=== PATIENT | male | born 1950 ===

== ENCOUNTER 2019-07-08 16:48 | Inpatient (IN) | payer MEDICARE ==
[2019-07-08] VITALS (10 sets, daily range): BP systolic 120–150; BP diastolic 78–97; BMI 39.0
[~2019-07-08] VITALS: Ht 185.4 cm; Wt 119.2 kg
--- NOTE | 2019-07-08 17:39 | NUR ---
PROPOFOL STARTED @1739 WILL TITRATE FOR PT COMFORT
[2019-07-08 17:45] LABS: BASOPHILS 0.2 % (0-2); EOSINOPHILS 0 % (0-7); HEMATOCRIT 26.1 % (42.0-54.0); HEMOGLOBIN 8.2 g/dL (13.5-17.5); IMMATURE GRANULOCYTES 0.2 % (0-5); LYMPHOCYTES 9.6 % (15-50); MCH 29.3 pg (26.0-34.0); MCHC 31.4 g/dL (31.0-37.0); MCV 93.2 fL (80.0-100.0); MEAN PLATELET VOLUME 11.3 fL (7.4-10.4); MONOCYTES 2.4 % (2-11); NEUTROPHILS 87.6 % (40-80); PLATELET COUNT 83 10x3/uL (130-400); RDW 18.2 % (11.5-14.5); WBC 4.7 10x3/uL (4.8-10.8)
[2019-07-08 17:56] LABS: APTT 43.8 SECONDS (22.8-39.4); INR 1.09 (0.85-1.17); PROTIME 14.1 SECONDS (11.6-15.0)
[2019-07-08] MEDS ORDERED: NORVASC10 MG PO (17:57)
[2019-07-08] MEDS ORDERED: COREG25 MG PO (17:58)
[2019-07-08] MEDS ORDERED: BAYER CHEWABLE81 MG PO (17:58)
[2019-07-08] MEDS ORDERED: HYDRALAZINE HCL50 MG PO (17:59)
[2019-07-08] MEDS ORDERED: LASIX40 MG PO (17:59)
[2019-07-08] MEDS ORDERED: PEPCID AC20 MG PO (17:59)
[2019-07-08] MEDS ORDERED: ISOSORBIDE MONO60 M1 PO (18:00)
[2019-07-08] MEDS ORDERED: LIPITOR10 MG PO (18:00)
[2019-07-08] MEDS ORDERED: ZESTRIL20 MG PO (18:01)
[2019-07-08] MEDS ORDERED: LYRICA300 MG PO (18:01)
[2019-07-08] MEDS ORDERED: MAG-OXIDE400 MG PO (18:01)
[2019-07-08] MEDS ORDERED: PROTONIX40 MG PO (18:02)
[2019-07-08] MEDS ORDERED: PLAVIX75 MG (18:02)
[2019-07-08] MEDS ORDERED: GLUCOPHAGE1000 MG PO (18:02)
[2019-07-08] MEDS ORDERED: PRAVACHOL40 MG (18:03)
[2019-07-08] MEDS ORDERED: RANEXA1000 MG PO (18:03)
[2019-07-08 18:05] LABS: CALC OSMOLALITY 293 mosm/kg (275-300); CALCIUM 7.5 mg/dL (8.5-10.1); CARBON DIOXIDE 29.6 mmol/L (21.0-32.0); CHLORIDE - SERUM 107 mmol/L (98-107); CREATININE - SERUM 1.4 mg/dL (0.6-1.3); GLUCOSE 76 mg/dL (74-106); SODIUM 143 mmol/L (136-145); UREA NITROGEN 41 mg/dL (7-18); eGFR NON AFRICAN AMERICAN 54 mL/min (90-120)
--- NOTE | 2019-07-08 18:11 | NUR ---
16 FR CRITICORE SANABRIA PLACED USING STERILE TECHNIQUE PT HAD 18 G EJ AND 20 G PIV IN LEFT HAND UPON ARRIVAL TO ED
--- NOTE | 2019-07-08 18:13 | NUR ---
PT INTUBATED WITH 7.5 ET TUBE 27 AT LIP OG TUBE IN PLACE LINKED TO INTERMITTANT SUCTION WITH PRODUCTION
[2019-07-08 18:22] LABS: APPEARANCE CLEAR (CLEAR); BILIRUBIN NEGATIVE (NEGATIVE); COLOR YELLOW (YELLOW); GLUCOSE NEGATIVE (NEGATIVE); KETONE NEGATIVE (NEGATIVE); NITRITE NEGATIVE (NEGATIVE); PROTEIN 1+ mg/dL (NEGATIVE); SPECIFIC GRAVITY 1.015 (1.005-1.020); UROBILINOGEN NORMAL (NORMAL)
[2019-07-08 18:25] LABS: ALBUMIN 1.7 g/dL (3.4-5.0); ALKALINE PHOSPHATASE 114 U/L (46-116); ALT (SGPT) 75 U/L (10-68); BILIRUBIN - TOTAL 0.24 mg/dL (0.2-1.3); CREATINE KINASE 83 UL (21-232); PROTEIN - SERUM 5.6 g/dL (6.4-8.2)
[2019-07-08 18:26] LABS: PLATELET ESTIMATE DECREASED
[2019-07-08 18:27] LABS: TROPONIN-I 0.118 ng/mL (0.000-0.060)
--- NOTE | 2019-07-08 18:40 | NUR ---
REC'D TO CV 01 VIA STRETCHER FROM ER. PT ON VENT VIA OETT, RT BAGGING - MANAGING VENTILATOR. ICU MONITORS ESTAB. L PIV CAME OUT DURING TRANSFER, DSG APPLIED - NEW 20GA SITED TO R AC AND DIPRIVAN GTT RESUMED AT 5 MCG/KG/MIN. L EJ PIV, DSG C/D/I WITH LR AT KVO. SEE FULL ADMISSION ASSESSMENT. ALARMS ON.
--- NOTE | 2019-07-08 18:58 | NUR ---
ALFREDO MACK BY CHARGE NURSE PRIOR TO PT LEAVING ED
--- NOTE | 2019-07-08 19:15 | NUR ---
PRHARMACY CONTACTED TO VERIFY NO ANTIBIOTICS HAVE BEEN GIVEN. DOSAGE TIMES ADJUSTED PER PHARMACY.
--- NOTE | 2019-07-08 20:20 | NUR ---
DR. GLORIA ROGERS RE: CONSULT
--- NOTE | 2019-07-08 20:28 | NUR ---
SPOKE WITH SON, OSOR[facility] PHONE[facility] UPDATE GIVEN.
--- NOTE | 2019-07-08 21:31 | NUR ---
DR. GLORIA ROGERS.
--- NOTE | 2019-07-08 21:51 | NUR ---
PT WAKING MORE EASILY AND COUGHING AGAINST VENT. MOVING ARMS - Camille SCOTT APN NOTIFIED, NEW ORDERS REC'D AND SOFT WRIST RESTRAINTS INITIATED.
--- NOTE | 2019-07-08 22:18 | NUR ---
ADMISSION HX COMPLETED PER MD RECORDS
[2019-07-08] MEDS ORDERED: BUMEX2 MG PO (22:24)
[2019-07-08] MEDS ORDERED: COLACE100 MG PO (22:25)
[2019-07-08] MEDS ORDERED: CHRONULAC30 ML PO (22:27)
[2019-07-08] MEDS ORDERED: FLOMAX0.4 MG PO (22:28)
[2019-07-08] MEDS ORDERED: MUCINEX600 MG PO (22:33)
[2019-07-08] MEDS ORDERED: HYDROCODON-ACE1 EA10 PO (22:33)
[2019-07-08] MEDS ORDERED: IPRAT-ALBUT 0.5-3 ML UPD (22:35)
[2019-07-08] MEDS ORDERED: BASAGLAR K100 UNIT/1 SC (22:38)
[2019-07-08] MEDS ORDERED: LORAZEPAM1 MG/0.5 M SL (22:41)
[2019-07-08] MEDS ORDERED: METOLAZONE2.5 MG PO (22:44)
[2019-07-08] MEDS ORDERED: PENTOXIFYLLINE ER (22:46)
[2019-07-08] MEDS ORDERED: KLOR-CON M2020 MEQ PO (22:48)
[2019-07-08] MEDS ORDERED: TRICOR145 MG PO (22:50)
[2019-07-08] MEDS ORDERED: REGLAN5 MG PO (22:53)
[2019-07-08] MEDS ORDERED: PULMICORT0.5 MG/21 INH (22:54)
--- NOTE | 2019-07-08 23:03 | NUR ---
PT MED REC COMPLETED PER KS AUG.
--- NOTE | 2019-07-08 23:09 | NUR ---
DR. CASTRO RETURNED PAGE. NEW ORDER FOR FENTANYL GTT AT 25MCG/HR, AND HE WILL SEE PT IN AM.
--- NOTE | 2019-07-08 23:15 | NUR ---
REASSESSMENT PER FLOWSHEET.
--- NOTE | 2019-07-08 23:49 | NUR ---
CM - A FLUTTER, VARIABLE RATE, SBP 109 - DR. HAAS NOTIFIED AND NEW ORDER REC'D FOR CARDIZEM GTT.
[2019-07-09] VITALS (27 sets, daily range): BP systolic 112–142; BP diastolic 51–85; BMI 38.7
[2019-07-09 00:04] LABS: CREATINE KINASE 67 UL (21-232); MAGNESIUM - SERUM 1.9 mg/dL (1.8-2.4)
[2019-07-09 00:12] LABS: TROPONIN-I 0.223 ng/mL (0.000-0.060)
--- NOTE | 2019-07-09 01:00 | NUR ---
PT REPOSITIONED UP IN BED TO L SIDE. HEELS BRIDGED. PT WAKING UP - WILL FOLLOW SIMPLE COMMANDS. C/O BEING "HOT". FAN PROVIDED AND EXTRA BLANKETS REMOVED. TITRATING DIPRIVAN PER ORDERS.
--- NOTE | 2019-07-09 01:15 | NUR ---
PT RESTING WITH EYES CLOSED AT THIS TIME. NO SIGN OF DISTRESS.
--- NOTE | 2019-07-09 03:17 | NUR ---
REASSESSMENT PER FLOWSHEET. NO ACUTE CHANGES. FSBS - 53, HYPOGLYCEMIC PROTOCOL FOLLOWED.
--- NOTE | 2019-07-09 05:15 | NUR ---
PT AGITATED, THRASHED HEAD AND PULLING AGAINST RESTRAINTS. TITRATING DIPRIVAN PER ORDERS. ATTEMPT TO CALM FREQUENTLY BY REORIENTING AND COMFORT MEASURES.
--- NOTE | 2019-07-09 06:18 | NUR ---
PT MORE CALM AT THIS TIME. CM - AFLUTTER, VARIABLE CONDUCTION, HR 89.
[2019-07-09 06:23] LABS: BASOPHILS 0 % (0-2); EOSINOPHILS 0.9 % (0-7); HEMOGLOBIN 8.3 g/dL (13.5-17.5); IMMATURE GRANULOCYTES 0.2 % (0-5); MCH 29.2 pg (26.0-34.0); MCHC 31.9 g/dL (31.0-37.0); MCV 91.5 fL (80.0-100.0); MEAN PLATELET VOLUME 11.6 fL (7.4-10.4); MONOCYTES 2.6 % (2-11); NEUTROPHILS 79.3 % (40-80); PLATELET COUNT 99 10x3/uL (130-400); RBC 2.84 10x6/uL (4.20-6.10); RDW 18.4 % (11.5-14.5); WBC 5.4 10x3/uL (4.8-10.8)
[2019-07-09 06:56] LABS: % SATURATION 24 % (15-55); IRON 36 ug/dl (35-150); TOTAL IRON BIND CAPACITY 150 ug/dl (260-445); UNSAT IRON BIND CAPACITY 114 ug/dl (150-375)
--- NOTE | 2019-07-09 07:00 | NUR ---
REPORT RECEVEID FROM THE OFF GOING RN. SEE ASSESSMENT IN THE PTS FLOW SHEET. PT SEDATED AND ON THE VENT. RESPONDS TO VERBAL SIMULI. 7.0 ETT 25 AT THE LIP. LEFT EJ IV NOTED AND RIGHT AC IV NOTED. BOTH PATENT WITH C/D/I DRESSING AND SHOW NO S/SX OF INFILTRATION. GENERLIZED BRUISING AND SCABS NOTED THROUGHT THE PTS BODY. FC NOTED CLEAR, YELLOW URINE. LEFT ANKLE RED WITH A HEELING VENOUS STASIS ULCER NOTED. DRESSING TO COCCYX NOTED. PT REPOSITIONED WITH WEDGE PILLOWS. 2:1 FLUTTER NOTED VSS. CALL LIGHT IN REACH. WILL CONT POC.
[2019-07-09 07:33] LABS: ALBUMIN 1.5 g/dL (3.4-5.0); ALKALINE PHOSPHATASE 93 U/L (46-116); ALT (SGPT) 65 U/L (10-68); BILIRUBIN - TOTAL 0.34 mg/dL (0.2-1.3); CALCIUM 7.6 mg/dL (8.5-10.1); CARBON DIOXIDE 29.8 mmol/L (21.0-32.0); CHLORIDE - SERUM 107 mmol/L (98-107); CKMB 3.6 U/L (0.0-3.6); CREATINE KINASE 56 UL (21-232); CREATININE - SERUM 1.4 mg/dL (0.6-1.3); MAGNESIUM - SERUM 1.8 mg/dL (1.8-2.4); PHOSPHOROUS 3.6 mg/dL (2.5-4.9); POTASSIUM - SERUM 4.7 mmol/L (3.5-5.1); PROTEIN - SERUM 5.8 g/dL (6.4-8.2); SODIUM 142 mmol/L (136-145); UREA NITROGEN 38 mg/dL (7-18); eGFR NON AFRICAN AMERICAN 54 mL/min (90-120)
[2019-07-09 07:35] LABS: CALC OSMOLALITY 289 mosm/kg (275-300); FERRITIN 2990 ng/mL (3-244); GLUCOSE 69 mg/dL (74-106)
[2019-07-09 08:00] LABS: PRO BNP 39971 pg/mL (0-125)
--- NOTE | 2019-07-09 09:42 | NUR ---
DR HAAS AT THE PTS BEDSIDE. REPEAT ABG.
--- NOTE | 2019-07-09 09:45 | NUR ---
DR ROSADO PAGED REGARDING CONSULT.
--- NOTE | 2019-07-09 10:13 | NUR ---
SPOKE WITH DR ROSADO. HE IS AWARE OF CONSULT AND PTS CONDITION. NO NEW ORDERS AT THIS TIME.
--- NOTE | 2019-07-09 11:00 | NUR ---
REASSESSMENT COMPLETED. VSS. CALL LIGHT IN REACH. FC CARE COMPLTED. WILL CONT POC.
--- NOTE | 2019-07-09 13:00 | NUR ---
PT SENT DOWN FOR CT OF HEAD AND CHEST. OVERLAY MATTRESSED PLACED ON BED WHILE PT WAS IN THE CT MACHINE. PT TRANSFERED BACK TO ICU. PT TOLERATED WELL. WILL CONT POC.
--- NOTE | 2019-07-09 13:26 | NUR ---
Stage 2 pressure injury noted on coccyx measuring 1.5cm x 1cm. Stage 2 pressure injury on left buttock measuring 1cm x 1cm. There is a healing wound on top of left foot measuring 2cm x 2cm. All wounds were present on admission last night. Wound care recommendations: -Mepilex dressing on bottom -turn/reposition q 2 hours -air overlay mattress -keep left foot elevated Wound care will continue monitoring.
--- NOTE | 2019-07-09 14:54 | NUR ---
DR CASTRO NOTIFIED ABOUT HEAD AND CHEST CT RESULTS. NO NEW ORDERS AT THIS TIME.
--- NOTE | 2019-07-09 20:00 | NUR ---
PT SEDATED ON VENTILATOR. VSS. AFEBRILE. L EJ PIV, R AC PIV-BOTH PATENT. REPOSITIONED.
[2019-07-10] VITALS (28 sets, daily range): BP systolic 111–158; BP diastolic 47–76
--- NOTE | 2019-07-10 05:50 | NUR ---
PT BATHED AND LINEN CHANGED. TOLERATED WELL.
--- NOTE | 2019-07-10 07:00 | NUR ---
REPORT RECEVIED FROM THE OFF GOING RN. SEE ASSESSMENT IN THE PTS FLOW SHEET. PT SEDATED ON THE VENT. PT RESPONDS TO VERBAL STIMULI. AFLUTTER 3:1 RATE 66 NOTED. VSS AT THIS TIME. FC NOTED WITH CLEAR, YELLOW URINE. CALL LIGHT IN REACH. WILL CONT POC.
[2019-07-10 07:15] LABS: BASOPHILS 0.2 % (0-2); EOSINOPHILS 0.8 % (0-7); HEMATOCRIT 26.7 % (42.0-54.0); HEMOGLOBIN 8.5 g/dL (13.5-17.5); IMMATURE GRANULOCYTES 0.2 % (0-5); LYMPHOCYTES 24.9 % (15-50); MCHC 31.8 g/dL (31.0-37.0); MCV 91.1 fL (80.0-100.0); MEAN PLATELET VOLUME 10.5 fL (7.4-10.4); MONOCYTES 4.3 % (2-11); NEUTROPHILS 69.6 % (40-80); RBC 2.93 10x6/uL (4.20-6.10); RDW 18.7 % (11.5-14.5); WBC 4.9 10x3/uL (4.8-10.8)
[2019-07-10 07:16] LABS: PLATELET COUNT 121 10x3/uL (130-400)
[2019-07-10 07:41] LABS: ALBUMIN 1.5 g/dL (3.4-5.0); ANION GAP 9.8 mmol/L (8-16); BILIRUBIN - TOTAL 0.29 mg/dL (0.2-1.3); CALCIUM 7.6 mg/dL (8.5-10.1); CARBON DIOXIDE 30.3 mmol/L (21.0-32.0); CREATININE - SERUM 1.4 mg/dL (0.6-1.3); MAGNESIUM - SERUM 1.7 mg/dL (1.8-2.4); PHOSPHOROUS 3.5 mg/dL (2.5-4.9); POTASSIUM - SERUM 4.1 mmol/L (3.5-5.1); PROTEIN - SERUM 5.8 g/dL (6.4-8.2); VANCOMYCIN - TROUGH 17.8 ug/mL (10.0-20.0)
--- NOTE | 2019-07-10 09:00 | NUR ---
VSS. CALL LIGHT IN REACH. WILL CONT POC.
--- NOTE | 2019-07-10 11:00 | NUR ---
REASSESSMENT COMPLETED. SEE FLOW SHEET.
--- NOTE | 2019-07-10 13:28 | NUR ---
SPOKE WITH THE DIATICIAN ABOUT TB. SHE WILL MAKE TF RECOMENDATION,.
--- NOTE | 2019-07-10 13:37 | NUR ---
Nutrition Consult/Follow-up: Consult received for TF. Pt remains intubated. Noted I/O -3039.8 (07/09). Diet: NPO Wt: 247# (07/10); 293.5# (07/09) No BMs recorded Labs noted: GFR 54, K+ 4.1, Ca 7.6, PO4 3.5, Mg 1.7, Alb 1.5 Meds noted: Lasix, Diprivan, D5 1/2NS @ 30 -Start Pulmocare @ 15 mL/hr and increase by 10 mL q hr to goal rate of 55 mL/hr (provides 1980 kcal, 83 g protein, 1036 mL H2O) + H2O flushes 50 mL q 4 hrs. -RD following. Thanks for the consult!
--- NOTE | 2019-07-10 15:00 | NUR ---
REASSESSMENT COMPLETED. SEE FLOW SHEET.
--- NOTE | 2019-07-10 16:26 | NUR ---
DAYA SCHULTZ PLACED MIDLINE TO LEFT UPPER ARM. ALL TUBING LINES CHANGED. DOBUTAMINE INITIATED.
--- NOTE | 2019-07-10 17:33 | NUR ---
PULMOCARE INITIATED AT 15ML/H PER ORDERS.
--- NOTE | 2019-07-10 17:57 | NUR ---
HEART RATE INCREASED TO 128 2:1 FLUTTER. DOBUTAMINE DECREAED TO 1MCG AND HEART RATE STILL OVER 100. LUBNA SALVADOR NOTIFIED. HOLD DOBUTAMINE. HEART RATE DECREASED TO BASELINE. WILL CONT POC.
--- NOTE | 2019-07-10 18:30 | MORECARE ---
CASE MANAGEMENT DISCHARGE SUMMARY PATIENT: CORNELL ROBERTSON UNIT: [id number] ADM DATE: 07/08/19 AGE: 69 : 52 SEX: M [facility] AUTHOR: YESENIA ZAPATA PHYSICIAN: REFERRING PHYSICIAN: AUDRA HAAS MD DATE OF SERVICE: 07/10/19 Discharge Plan Patient Name: CORNELL ROBERTSON Facility: [facility]:[place] : 1950 Planned Disposition: Anticipated Discharge Date: Discharge Date: Expected LOS: Initial Reviewer: [email or web address] Initial Review Date: 07/08/2019 Generated: 07/10/19 7:30 pm DCPIA - Discharge Planning Initial Assessment Updated by [email or web address]: Ramona Salcedo on 07/10/19 6:28 pm * PCP KIMANI ROBERTSON * [facility] * Preadmission Environment [facility] * Facility Name [facility] * ADLs Partial Dependent * Partial ADLs (Assistance needed) Ambulation Bathing Dressing Eating Medication Management Toileting Transfers * List name and contact numbers for known caregivers / representatives who currently or will assist patient after discharge: OSORIO SAUCEDA [facility] - [phone] * Verbal permission to speak to the caregivers and representatives has been obtained from the patient. N/A * Community resources currently utilized None * Additional services required to return to the preadmission environment? No * Can the patient safely return to the preadmission environment? Yes * Has this patient been hospitalized within the prior 30 days at any hospital? No Patient Name: CORNELL ROBERTSON Page [phone] at 1830 All edits/amendments must be made on the electronic document DICTATION DATE: 07/10/191829 PROTECTIVE SERVICE SPECIALIST: ELIA 07/10/191829 RPT#: [id number] DC DATE: STATUS: ADM IN [facility] [address] [place] [address] END OF REPORT
--- NOTE | 2019-07-10 22:15 | NUR ---
PT IS A-FLUTTER PER CM. HE HAS STARTED HAVING 5-[address] GARCIA CALLED AND NOTIFIED. CARDIZEN ON HOLD PER ORDER. NO OTHER ORDERS AT THIS TIME. PT ATTACHED TO EXTERNAL PACEMAKER DUE TO HR BEING BRADYACARDIC INTERMITTENTLY.
[2019-07-11] VITALS (35 sets, daily range): BP systolic 123–173; BP diastolic 52–106
[2019-07-11 04:53] LABS: BASOPHILS 0.3 % (0-2); EOSINOPHILS 1.6 % (0-7); HEMATOCRIT 24.1 % (42.0-54.0); HEMOGLOBIN 7.8 g/dL (13.5-17.5); IMMATURE GRANULOCYTES 0.6 % (0-5); LYMPHOCYTES 31.3 % (15-50); MCH 29.5 pg (26.0-34.0); MCHC 32.4 g/dL (31.0-37.0); MCV 91.3 fL (80.0-100.0); MEAN PLATELET VOLUME 10.7 fL (7.4-10.4); MONOCYTES 4.1 % (2-11); NEUTROPHILS 62.1 % (40-80); PLATELET COUNT 125 10x3/uL (130-400); RBC 2.64 10x6/uL (4.20-6.10); RDW 18.6 % (11.5-14.5)
[2019-07-11 04:55] LABS: WBC 3.2 10x3/uL (4.8-10.8)
[2019-07-11 05:09] LABS: ALBUMIN 1.8 g/dL (3.4-5.0); ANION GAP 13.8 mmol/L (8-16); BILIRUBIN - TOTAL 0.31 mg/dL (0.2-1.3); CALCIUM 7.5 mg/dL (8.5-10.1); CARBON DIOXIDE 28.8 mmol/L (21.0-32.0); CREATININE - SERUM 1.4 mg/dL (0.6-1.3); MAGNESIUM - SERUM 1.7 mg/dL (1.8-2.4); PHOSPHOROUS 3.4 mg/dL (2.5-4.9); POTASSIUM - SERUM 3.6 mmol/L (3.5-5.1); PROTEIN - SERUM 5.6 g/dL (6.4-8.2)
--- NOTE | 2019-07-11 07:00 | NUR ---
RECEIVED BEDSIDE REPORT ON PATIENT AND ASSUMED CARE. PATIENT SEDATED ON VENT, OPENS EYES TO VOICE, NOT FOLLOWING COMMANDS. IV 18 GA TO LEFT EJ, FLUSHES EASILY, POSTIVE BLOOD RETURN, NSL; IV 20 GA TO RIGHT FA, FLUSHES EASILY, NO BLOOD RETURN, NSL. MIDLINE TO LEFT UPPER ARM INFUSING W/O DIFFICULTY. D5 1/2 NS INFUSING AT 3O ML/HR, FENTANYL AT 100 MCG/HR AND PROPOFOL AT 15 MCG/KG/MIN. CM - A-FLUTTER 3:1; RATE 78, SPO2 100% ON VENTILATOR. VENT SETTINGS ARE TV 550; A/C - 15; PEEP - 5 AND FIO2 - 50%. BILATERAL WRIST RESTRAINTS IN PLACE. SCDS IN PLACE. BBS - COARSE, DIMINISHED IN THE BASES. HEAD TO TOE ASSESSMENT COMPLETED.
--- NOTE | 2019-07-11 08:05 | NUR ---
1/2 BAGS 1 GM MAGNESIUM SULFATE STARTED INFUSING. MAG LEVEL THIS AM WAS 1.7. TO REPEAT LAB DRAW IN AM.
--- NOTE | 2019-07-11 08:49 | NUR ---
OGT PLACEMENT CHECKED VIA ASCULTATION, RESIDUAL 0 ML, TUBE FEEDING INCREASED FROM 15 ML/HR TO 25 ML/HR. PATIENT TURNED AND REPOSITIONED IN BED. VSS.
--- NOTE | 2019-07-11 09:58 | NUR ---
DR. HAAS AT ROOM UPATED AND EXAMINED PATIENT.
--- NOTE | 2019-07-11 10:17 | NUR ---
MEDS GIVEN PER MAR. VSS.
--- NOTE | 2019-07-11 10:37 | NUR ---
SPOKE TO DR. HAAS REGARDING PATIENTS H AND H, ADVISED TO GIVE 1 UNIT PRBCS.
--- NOTE | 2019-07-11 10:54 | NUR ---
REPORT GIVEN TO JOVANNY MARTÍNEZ AND TRANSPORTED TO ROOM 2313.
--- NOTE | 2019-07-11 10:56 | NUR ---
SPOKE TO PATIENTS ORLANDO CALVO AND ADVISED OF MOVE TO ICU ROOM 2313.
--- NOTE | 2019-07-11 11:25 | NUR ---
REASSESSMENT COMPLETE PER FLOW SHEET. VSS. NO NEW CHANGES WILL CONTINUEBronson RICHARDSON
--- NOTE | 2019-07-11 15:30 | NUR ---
REASSESSMENT COMPLETE PER FLOW SHEET. VSS. NO NEW CHANGES PT RESTING COMFORTABLY WILL CONTINUE TO MONITOR
--- NOTE | 2019-07-11 19:32 | NUR ---
SHIFT ASSESSMENT COMPLETED, PT INTUBATED, LIGHTLY SEDATED TRACKS WITH EYES, UNABLE TO SQUEEZE HANDS OR MOVE FEET ON COMMAND BUT IS AWAKE AND ORIENTED. VS WNL - NG TUBE OUT, PLANS ON EXTUBATION TOMORROW SO WILL LEAVE NG OUT AT THIS TIME. BILAT SOFT WRIST RESTRAINTS TO PROTECT MEDICAL TUBING AND LINES. SEE FLOWSHEET FOR COMPLETE ASSESSMENT.
--- NOTE | 2019-07-11 20:33 | NUR ---
HS MEDICATIONS GIVEN - PT INTUBATED AND SEDATED AT THIS TIME RESTING COMFORTABLY ON THE VENTILATOR
--- NOTE | 2019-07-11 21:36 | MORECARE ---
CASE MANAGEMENT DISCHARGE SUMMARY PATIENT: CORNELL ROBERTSON UNIT: [id number] ADM DATE: 07/08/19 AGE: 69 : 54 SEX: M ROOM/BED: D.2313 AUTHOR: YESENIA ZAPATA PHYSICIAN: REFERRING PHYSICIAN: AUDRA HAAS MD DATE OF SERVICE: 07/11/19 Discharge Plan Patient Name: CORNELL ROBERTSON Facility: [facility]:[place] : 1950 Planned Disposition: Anticipated Discharge Date: Discharge Date: Expected LOS: Initial Reviewer: [email or web address] Initial Review Date: 07/08/2019 Generated: 07/11/19 10:36 pm Comments DCP- Discharge Planning Updated by [email or web address]: Ramona Salcedo on 07/11/19 8:[address] CM attempted to call [facility] and [facility] [phone] each time facility would answer but they could not hear CM. CM tried on two different phones to assure it wasn't phone on this end. CM will continue to try to contact facility to find out bed status. DCPIA - Discharge Planning Initial Assessment Updated by [email or web address]: Ramona Salcedo on 07/10/19 6:28 pm * PCP KIMANI ROBERTSON * Pharmacy [facility] * Preadmission Environment [facility] Facility * Facility Name [facility] * ADLs Partial Dependent * Partial ADLs (Assistance needed) Ambulation Bathing Dressing Eating Medication Management Toileting Transfers * List name and contact numbers for known caregivers / representatives who currently or will assist patient after discharge: OSORIO SAUCEDA [facility] - [phone] * Verbal permission to speak to the caregivers and representatives has been obtained from the patient. N/A * Community resources currently utilized None * Additional services required to return to the preadmission environment? No * Can the patient safely return to the preadmission environment? Yes * Has this patient been hospitalized within the prior 30 days at any hospital? No Last DP export: 07/10/19 5:30 p Patient Name: CORNELL ROBERTSON Page [phone] at 2136 All edits/amendments must be made on the electronic document DICTATION DATE: 07/11/192135 BANKING PIN ADJUSTER: ELIA 07/11/192135 RPT#: [id number] DC DATE: STATUS: ADM IN [facility] [address] [place] [address] END OF REPORT
--- NOTE | 2019-07-11 23:45 | NUR ---
REASSESSMENT COMPLETED SEE FLOWSHEET
--- NOTE | 2019-07-11 23:45 | NUR ---
UNABLE TO OBTAIN SUICIDE SCREENING AT THIS TIME
[2019-07-12] VITALS (24 sets, daily range): BP systolic 130–178; BP diastolic 68–89
--- NOTE | 2019-07-12 00:57 | NUR ---
PT INTUBATED AND SEDATED - ORAL CARE COMPLETED, UNCONTROLLED AFIB ON THE MONITOR WCTM
[2019-07-12 04:59] LABS: BASOPHILS 0.4 % (0-2); EOSINOPHILS 0.1 % (0-7); IMMATURE GRANULOCYTES 0.4 % (0-5); LYMPHOCYTES 27.1 % (15-50); MCHC 32.4 g/dL (31.0-37.0); MCV 92.4 fL (80.0-100.0); MEAN PLATELET VOLUME 10.3 fL (7.4-10.4); MONOCYTES 6.5 % (2-11); NEUTROPHILS 65.5 % (40-80)
[2019-07-12 05:01] LABS: HEMATOCRIT 29.3 % (42.0-54.0); HEMOGLOBIN 9.5 g/dL (13.5-17.5); PLATELET COUNT 153 10x3/uL (130-400); RBC 3.17 10x6/uL (4.20-6.10); WBC 6.8 10x3/uL (4.8-10.8)
[2019-07-12 05:13] LABS: ALBUMIN 2.1 g/dL (3.4-5.0); ANION GAP 18.9 mmol/L (8-16); BILIRUBIN - TOTAL 0.57 mg/dL (0.2-1.3); CALCIUM 7.6 mg/dL (8.5-10.1); CARBON DIOXIDE 24.5 mmol/L (21.0-32.0); CREATININE - SERUM 1.7 mg/dL (0.6-1.3); MAGNESIUM - SERUM 1.8 mg/dL (1.8-2.4); PHOSPHOROUS 3.7 mg/dL (2.5-4.9); POTASSIUM - SERUM 3.4 mmol/L (3.5-5.1); PROTEIN - SERUM 6.1 g/dL (6.4-8.2)
--- NOTE | 2019-07-12 07:00 | NUR ---
BEDSIDE REPORT RECIEVED. SHIFT ASSESSMENT COMPLETED PER FLOWSHEET, SEE FLOWSHEET FOR INFORMATION. VSS. WILL CONT TO MONITOR.
--- NOTE | 2019-07-12 09:00 | NUR ---
ORAL AND INLINE SUCTIONED. NO ACUTE NEEDS OR DISTRESS NOTED AT THIS TIME. WILL CONT TO MONITOR.
--- NOTE | 2019-07-12 11:00 | NUR ---
REASSESSMENT COMPLETED PER FLOWSHEET, SEE FLOWSHEET FOR INFORMATION. NO ACUTE NEEDS OR DISTRESS NOTED AT THIS TIME. WILL CONT TO MONITOR.
--- NOTE | 2019-07-12 12:00 | NUR ---
AT BEDSIDE, BRONCHOSCOPY PROCEDURE STARTED. WILL CONT TO MONITOR.
--- NOTE | 2019-07-12 13:00 | NUR ---
TURNED PT PER COMFORT. NO ACUTE NEEDS OR DISTRESS WILL CONT TO MONITOR.
--- NOTE | 2019-07-12 14:16 | NUR ---
Nutrition follow-up: Pt intubated, sedated s/p bronch OGT will be placed today and Pulmocare started @ 25 ml/hr with no increase per Dr. Barber. RDN following.
--- NOTE | 2019-07-12 15:00 | NUR ---
REASSESSMENT COMPLETED PER FLOWSHEET, SEE FLOWSHEET FOR INFORMATION. PAGEKirit, NEW ORDERS RECEIVED. WILL CONT TO MONITOR.
[2019-07-12 16:20] LABS: POTASSIUM - SERUM 3.1 mmol/L (3.5-5.1)
--- NOTE | 2019-07-12 19:00 | NUR ---
PT IS RESTING IN BED AWAKE INTUBATED. ET INTACT AND SECURE TO VENT. HOB IS AT 30 DEGREES, ISOLATION PROTOCOL OBSERVED, VAP PROTOCOL OBSERVED. HE IS CALM. VITAL SIGNS ARE STABLE. BED IS LOW,SIDE RAILSX2, CALL LIGHT WITHIN REACH.
--- NOTE | 2019-07-12 21:45 | NUR ---
PT IS RESTING IN BED WITH EYES CLOSED. VITALS ARE STABLE, BED IS LOW, SIDE RAILSX2, CALL LIGHT WITHIN REACH. WILL CONTINUE TO MONITOR
--- NOTE | 2019-07-12 23:10 | NUR ---
PT IS RESTING IN BED WITH EYES CLOSED. VITALS ARE STABLE. ETT IS SECURE, ISOLATION PROTOCOL OBSERVED. BED IS LOW,SIDE RAILSX2,CALL LIGHT WITHIN REACH.WILL CONTINUE TO MONITOR
[2019-07-13] VITALS (30 sets, daily range): BP systolic 102–174; BP diastolic 49–113
--- NOTE | 2019-07-13 01:34 | NUR ---
WENT INTO ROOM TO ADMINISTER MEDS ORDERED. PT IS AWAKE AND TYRING TO BITE ETT. WHEN ASKED IF HE WANTS IT OUT HE SHOOK HIS HEAD UP AND DOWN YES. I VOICED THAT I AM SORRY BUT IT HAS TO STAY IN FOR NOW. I ASKED HIM IF HE IS IN ANY PAIN AND HE SHOOK HIS HEAD BACK AND FORTH FOR NO. STARTED HIS TUBE FEEDING ORDERED SINCE PLACEMENT HAS BEEN CONFIRMED BY XRAY. I ALSO RECHECKED PLACEMENT BY ASCULTATING AT THE STOMACH AND HEARD GURGLES WHEN FLUSHED WITH 20ML OF AIR. STARTED TUBE FEEDINGS AT 15ML/HR ORDERED TO START. VITAL SIGNS ARE STABLE. BED IS LOW,SIDE RAILSX2, CALL LIGHT WITHIN REACH. WILL CONTINUE TO MONITOR
[2019-07-13 02:37] LABS: HEMATOCRIT 27.6 % (42.0-54.0); HEMOGLOBIN 8.9 g/dL (13.5-17.5); MCH 29.6 pg (26.0-34.0); MCHC 32.2 g/dL (31.0-37.0); MCV 91.7 fL (80.0-100.0); MEAN PLATELET VOLUME 10.2 fL (7.4-10.4); PLATELET COUNT 159 10x3/uL (130-400); RBC 3.01 10x6/uL (4.20-6.10); RDW 18.3 % (11.5-14.5)
[2019-07-13 03:12] LABS: ALBUMIN 2.3 g/dL (3.4-5.0); BILIRUBIN - TOTAL 0.7 mg/dL (0.2-1.3); CALCIUM 7.7 mg/dL (8.5-10.1); CARBON DIOXIDE 26.9 mmol/L (21.0-32.0); CREATININE - SERUM 1.6 mg/dL (0.6-1.3); MAGNESIUM - SERUM 1.7 mg/dL (1.8-2.4); PHOSPHOROUS 3.2 mg/dL (2.5-4.9); PROTEIN - SERUM 6.1 g/dL (6.4-8.2)
[2019-07-13 03:47] LABS: LYMPHOCYTES 31 % (15-50); MONOCYTES 8 % (2-11); NEUTROPHILS 59 % (40-80); PLATELET ESTIMATE NORMAL
--- NOTE | 2019-07-13 03:51 | NUR ---
PT IS RESTING IN BED WITH EYES CLOSED. VITAL SIGNS ARE STABLE. BED IS LOW,SIDE RAILSX2,CALL LIGHT WITHIN REACH. WILL CONITNUE TO MONITOR
--- NOTE | 2019-07-13 05:00 | NUR ---
PERFOMRED HCG TOTAL BED BATH AT THIS TIME. PT TOLERATED WELL. RESTRAINTS WERE TAKEN OFF DURING BATH AND TIED BACK AFTER. CATHETOR CARE WAS PERFOMRED. PT HAD SMALL LIQUID BOWEL MOVEMENT BROWN IN COLOR AT THIS TIME. APPLIED NEW MEPAPLEX DRESSING TO COCCYX REAGION AND TO RIGHT ELBOW. I D/C RIGHT FORAMR IV AT THIS TIME DUE TO PROTOCOL, CATHETOR WAS INTACT WITH MINIMAL BLEEDING. REPOSITION ALL 4 EXTREMITIES ON PILLOW WITH HEALS HANGING OFF THE PILLOW OFF THE BED. PT TOLERATED ALL THIS WELL WITHOUT GRIMMISING. VITAL SIGNS ARE STABLE. BED IS LOW,SIDE RAILSX2,CALL LIGHT WITHIN REACH. WILL CONITNUE TO MONITOR
--- NOTE | 2019-07-13 07:00 | NUR ---
BEDSIDE REPORT RECEIVED. SHIFT ASSESSMENT COMPLETED PER FLOWSHEET, SEE FLOWSHEET FOR INFORMATION. PT AWAKE IN BED MOVING ARMS. WILL CONT TO MONITOR.
[2019-07-13 08:55] LABS: ANION GAP 16.4 mmol/L (8-16); POTASSIUM - SERUM 3.3 mmol/L (3.5-5.1)
--- NOTE | 2019-07-13 09:00 | NUR ---
TURNED PER COMFORT, NO ACUTE NEEDS OR DISTRESS NOTED AT THIS TIME. VSS. WILL CONT TO MONITOR.
--- NOTE | 2019-07-13 11:00 | NUR ---
REASSESSMENT COMPLETED PER FLOWSHEET, SEE FLOWSHEET FOR INFORMATION. PT THROWING UP THICK BROWN LIQUID, NOTIFIED. NEW ORDER RECEIVED. WILL CONT TO MONITOR.
--- NOTE | 2019-07-13 12:00 | NUR ---
PT DESAT TO 52, RT CALLED. PT BAGGED UNTIL O2 SAT WENT UP TO 92. PT BACK ON VENT AT 100 OXYGEN. VERSED MEDICAL LABORATORY TECHNICAL OFFICER INITIATED. AT BEDSIDE. VSS, WILL CONT TO MONITOR.
--- NOTE | 2019-07-13 13:00 | NUR ---
PT AGITATED. THRASHING HEAD TRYING TO SELF EXTUBATE. REORIENTED PT AND HE CALMED DOWN. WILL CONT TO MONITOR.
--- NOTE | 2019-07-13 15:00 | NUR ---
REASSESSMENT COMPLETED PER FLOWSHEET, SEE FLOWSHEET FOR INFORMATION. WILL CONT TO MONITOR.
[2019-07-13 16:08] LABS: ACID FAST SMEAR Negative (()); AFB SPECIMEN PROCESSING Concentration (())
--- NOTE | 2019-07-13 17:00 | NUR ---
PT RESTING IN BED WITH EYES CLOSED. NO ACUTE NEEDS OR DISTRESS NOTED AT THIS TIME. WILL CONT TO MONITOR.
--- NOTE | 2019-07-13 19:25 | NUR ---
PT IS LAYING IN BED INTUBATED/SEDATED ON RIGHT SIDE. ISOLATION SEDATION OBSREVED. RESTRAINTS OBSERVED AND SECURED. VITAL SIGNS ARE STABLE. SANABRIA CATHETOR IS INTACT DRAINING. LEFT AC MIDLINE INTACT PATENT. LEFT EJ SL LOCK PATENT. PT MOVES WHEN STIMULATED PER STERNAL RUB. WILL DO FULL ASSESSMENT AND CHART. BED IS LOW, SIDE RAILSX2,CALL LIGHT WITHIN REACH. WILL CONINTUE TO MONITOR.
--- NOTE | 2019-07-13 21:45 | NUR ---
WENT INTO TURN PT AND FOUND THAT HE HAD HAD A BM LIQUID LIGHT BROWN. OCCULAT GOTTEN AT THIS TIME ORDERED. BEFORE CLEANING PT UP, I PRE-OXYGENATED AND SUCTION VIA ETT TUBE. TURNED PT AND CLEANED HIM WHILE DOING A TOTAL BED CHANGE. PT WAS TURNED AND PROPED ONTO LEFT SIDE. RETRAINTS WERE TAKEN OFF AND REAPPLIED AFTER CLEANING AND POSITIONING. PT TOLERATED WELL. PT WAS SLIGHTLY ARROUSED BY OPENING HIS EYES WHILE TURNING. AFTER CLEANING I DID ORAL MOUTH CARE ORDERED AND APPLIED MOISTURE CREAM TO LIPS. BED WAS PUT BACK IN THE LOW POSITION. HOB AT 30 DEGREES, ALL LINES AND TUBES SECURE AND IN PLACE. SIDE RAILSX2,CALL LIGHT WITIN REACH. VITAL SIGNS STABLE. WILL CONTNIUE TO [facility]
--- NOTE | 2019-07-13 23:14 | NUR ---
PERFORMED REASSESMENT. PT IS INTUBATED/SEDATED. ISOLATION OBSERVED. LET RESTRAINTS OFF AND REAPLIED ONCE DONE. PT HAS EYES CLOSED BUT OPEN WHEN CALLED NAME OUT. FASTLY GOES BACK TO SLEEP. BED IS LOW,SIDE RAILSX2,CALL LIGHT WITHIN REACH.WILL CONITNUE TO MONITOR
[2019-07-14] VITALS (24 sets, daily range): BP systolic 116–181; BP diastolic 61–92; Ht 185.4 cm; Wt 119.2 kg
--- NOTE | 2019-07-14 00:47 | NUR ---
PT O2 SATURATION DECREASED IN THE 80%. INCREASED OXYGEN TO 100% FOR 2MINUTES AND O2 IMPROVED TO THE 90%. ONCE BACK TO 70% O2 DECREASED AGIN TO 78%. RT CALLED IN AND PUT PT ON 100% O2 AT THIS TIME. PT O2 IS 96% NOW, OTHER VITAL SIGNS ARE STABLE. PERFOMRED ORAL CARE AT THIS TIME, NOT SUCTION. LIFTED PT UP IN THE BED AND REPOSITIONED WELL TO BACK. HOB IS 30 DEGREES. BED IS LOW,SIDE RAILX2,CALL LIGHT WITHIN REACH.WILL CONTINUE TO MONITOR
--- NOTE | 2019-07-14 02:58 | NUR ---
PT IS SEDATED INTUBATED IN BED WITH EYES CLOSED. PERFORMING RE ASSESSMENT AT THIS TIME AND WILL DOCUMENT. I PERFOMRED ORAL CARE, REPOSITIONED TO THE RIGHT. BED IS LEFT LOW,SIDE RAILSX2,CALL LIGHT WIHTIN REACH. VITAL SIGNS ARE STABLE. WILL CONINTUE TO MONITOR
--- NOTE | 2019-07-14 04:12 | NUR ---
PERFORMED TOTOAL BED BATH C HCG AT THIS TIME. PT HAS SMALL LOOSE LIGHT BROWN BM. CHANGED ALL LIENES, PERFOMRED ORAL CARE, CHANGED MEPAPLEX ON COCCYX. CHANGED DRESSING ON BOTH LEFT AC MIDLINE WHILE KEEPING STERIL TECHNIQUE AND CHANGED LEFT EJ. PT WAS PROPPED ONTO HIS RIGHT SIDE WITH WEDGES. SALINE FLUSED LEFT EJ AT THIS TIME, NO S/S OF INFILTRATION. VITALS STABLE. RESTRAINTS WERE TAKEN OFF AND RE APPLIED ORDER. BED IS LOW,SIDE RAILSX2,CALL LIGHT WITHIN REACH. WILL CONTINUE TO MONITOR.
[2019-07-14 06:31] LABS: ALBUMIN 2.3 g/dL (3.4-5.0); BILIRUBIN - TOTAL 0.83 mg/dL (0.2-1.3); CALCIUM 7.4 mg/dL (8.5-10.1); CREATININE - SERUM 1.8 mg/dL (0.6-1.3); MAGNESIUM - SERUM 1.8 mg/dL (1.8-2.4); PHOSPHOROUS 3.4 mg/dL (2.5-4.9); PROTEIN - SERUM 6.1 g/dL (6.4-8.2)
--- NOTE | 2019-07-14 07:00 | NUR ---
BEDSIDE REPORT RECEIVED. SHIFT ASSESSMENT COMPLETED PER FLOWSHEET, SEE FLOWSHEET FOR INFORMATION. ORAL AND INLINE SUCTIONED AND ORAL CARE GIVEN. NO ACUTE NEEDS OR DISTRESS NOTED AT THIS TIME. WILL CONT TO MONITOR.
[2019-07-14 08:13] LABS: BASOPHILS 0.2 % (0-2); EOSINOPHILS 0.1 % (0-7); HEMATOCRIT 30.5 % (42.0-54.0); HEMOGLOBIN 9.5 g/dL (13.5-17.5); IMMATURE GRANULOCYTES 1.1 % (0-5); MCH 29.1 pg (26.0-34.0); MCHC 31.1 g/dL (31.0-37.0); MCV 93.6 fL (80.0-100.0); MONOCYTES 9.3 % (2-11); NEUTROPHILS 77.3 % (40-80); PLATELET COUNT 190 10x3/uL (130-400); RBC 3.26 10x6/uL (4.20-6.10); RDW 18.4 % (11.5-14.5); WBC 12.4 10x3/uL (4.8-10.8)
--- NOTE | 2019-07-14 09:00 | NUR ---
REPOSITIONED PER COMFORT. ORAL AND INLINE SUCTIONED. WILL CONT TO MONITOR.
--- NOTE | 2019-07-14 11:00 | NUR ---
REASSESSMENT COMPLETED PER FLOWSHEET, SEE FLOWSHEET FOR INFORAMTION. TURNED PT PER COMFORT. ORAL AND INLINE SUCTIONED. COMPLETE LINEN CHANGE COMPLETED. WILL CONT TO MONITOR.
--- NOTE | 2019-07-14 13:00 | NUR ---
AT BEDSIDE, CVL PLACED. WILL CONT TO MONITOR.
--- NOTE | 2019-07-14 15:00 | NUR ---
REASSESSMENT COMPLETED PER FLOWSHEET, SEE FLOWSHEET FOR INFORMATION. REPOSITIONED PER COMFORT. ORAL AND INLINE SUCTIONED. WILL CONT TO MONITOR.
--- NOTE | 2019-07-14 17:00 | NUR ---
ORAL AND INLINE SUCTIONED. WILL CONT TO MONITOR.
--- NOTE | 2019-07-14 19:00 | NUR ---
ASSESSMENT COMPLETED. REPOSITIONED AND ORAL CARE PROVIDED. CONT ON VENT. LEFT SUBCLAVIAN AND LEFT AC MIDLINE PATENT.
--- NOTE | 2019-07-14 21:00 | NUR ---
REPOSITIONED AND ORAL CARE PROVIDED. STARTED TF BACK PER MD ORDERS, CHECKED PLACEMENT FIRST. PULLED EJ WITH TIP INTACT.
--- NOTE | 2019-07-14 23:00 | NUR ---
REASSESSMENT COMPLETE REPOSITIONED FOR COMFORT WILL CONTINUE TO MONITOR
[2019-07-15] VITALS (26 sets, daily range): BP systolic 94–171; BP diastolic 56–98
--- NOTE | 2019-07-15 03:00 | NUR ---
REASSESSMENT COMPLETE ORAL CARE AND REPOSITIONED FOR COMFORT CPOC
--- NOTE | 2019-07-15 07:00 | NUR ---
PT REPORT RECEIVED FROM DRIVER GUIDE NURSE. NO ACUTE SIGNS OF DISTRESS NOTED. SHIFT ASSESSMENT COMPLETED. PT ON VENT. WILL CONTINUE TO MONITOR
--- NOTE | 2019-07-15 09:00 | NUR ---
PT RESTING IN BED. NO ACUTE SIGNS OF DISTRESS NOTED. WILL CONTINUE TO MONITOR
--- NOTE | 2019-07-15 09:19 | NUR ---
Nutrition follow-up: Pt intubated, sedated Pulmocare infusing @ 55 ml/hr Labs reviewed Wt: 269# RDN following.
--- NOTE | 2019-07-15 11:00 | NUR ---
PT RESTING IN BED COMFORTABLY. ORAL CARE PROVIDED. REASSESSMENT COMPLETED. WILL CONTINUE TO MONITOR
[2019-07-15 11:09] LABS: FUNGUS STAIN Final report (())
--- NOTE | 2019-07-15 12:00 | NUR ---
DR ANTUNEZ AT BEDSIDE. UPDATE GIVEN. STOPPED PRECEDEX. INCREASED FENTANYL FILENET P8 DEVELOPER AND VERSED FILENET P8 DEVELOPER TO MAINTAIN SEDATION
--- NOTE | 2019-07-15 13:00 | NUR ---
PT RESTING IN BED. NO ACUTE SIGNS OF DISTRESS NOTED. WILL CONTINUE TO MONITOR
--- NOTE | 2019-07-15 15:00 | NUR ---
PT RESTING IN BED. REASSESSMENT COMPLETED. NO ACUTE SIGNS OF DISTRESS NOTED. WILL CONTINUE TO MONITOR
--- NOTE | 2019-07-15 17:15 | NUR ---
CHG BATH GIVEN. PT TOLERATED WELL. WILL CONTINUE TO MONITOR
--- NOTE | 2019-07-15 19:00 | NUR ---
Report received from off going nurse. Pt is laying in bed intubated and sedated. Pt repositioned for comfort. Oral care performed. No s/s of distress noted. Will continue to monitor.
--- NOTE | 2019-07-15 21:00 | NUR ---
Pt is laying in bed intubated and sedated. Pt repositioned for comfort. Oral care performed. No further needs noted. No s/s of distress. Will continue to monitor.
--- NOTE | 2019-07-15 23:00 | NUR ---
Reassessment completed, see flowsheet for details. Pt is laying in bed intubated and sedated. Pt repositioned for comfort. Oral care performed. No further needs noted. No s/s of distress. Will continue to monitor.
[2019-07-16] VITALS (25 sets, daily range): BP systolic 83–136; BP diastolic 53–87
--- NOTE | 2019-07-16 01:00 | NUR ---
Pt is laying in bed intubated and sedated. Pt repositioned for comfort. Oral care performed. No s/s of distress noted. will continue to monitor.
[2019-07-16 04:50] LABS: BASOPHILS 0.1 % (0-2); EOSINOPHILS 0.7 % (0-7); HEMOGLOBIN 7.6 g/dL (13.5-17.5); IMMATURE GRANULOCYTES 1.4 % (0-5); LYMPHOCYTES 11.3 % (15-50); MCHC 31.9 g/dL (31.0-37.0); MCV 94.1 fL (80.0-100.0); MEAN PLATELET VOLUME 9.8 fL (7.4-10.4); MONOCYTES 8.1 % (2-11); NEUTROPHILS 78.4 % (40-80); PLATELET COUNT 217 10x3/uL (130-400); RDW 18.7 % (11.5-14.5); WBC 10.4 10x3/uL (4.8-10.8)
[2019-07-16 05:36] LABS: ALBUMIN 2.1 g/dL (3.4-5.0); ANION GAP 11.8 mmol/L (8-16); BILIRUBIN - TOTAL 0.69 mg/dL (0.2-1.3); CARBON DIOXIDE 29.5 mmol/L (21.0-32.0); CREATININE - SERUM 2.4 mg/dL (0.6-1.3); MAGNESIUM - SERUM 1.8 mg/dL (1.8-2.4); PHOSPHOROUS 3.3 mg/dL (2.5-4.9); POTASSIUM - SERUM 3.3 mmol/L (3.5-5.1); PROTEIN - SERUM 5.4 g/dL (6.4-8.2)
[2019-07-16 05:57] LABS: HEMATOCRIT 23.8 % (42.0-54.0); RBC 2.53 10x6/uL (4.20-6.10)
--- NOTE | 2019-07-16 07:00 | NUR ---
PT REPORT RECEIVED FROM ASSOCIATE PROFESSOR OF AUTOMATION NURSE. SHIFT ASSESSMENT COMPLETED. NO ACUTE SIGNS OF DISTRESS NOTED. BP IN THE 80'S SYSTOLIC. MAP IN THE LOW 60'S. TURNED THE DOBUTAMINE BACK ON AT 2.5
--- NOTE | 2019-07-16 09:30 | NUR ---
PT RESTING IN BED COMFORTABLY. NO ACUTE SIGNS OF DISTRESS NOTED. WILL CONTINUE TO MONITOR
--- NOTE | 2019-07-16 11:07 | NUR ---
PAGED DR ISRAEL TO NOTIFY HIM OF CONSULT ON THIS PT. AWAITING CALL BACK
--- NOTE | 2019-07-16 13:00 | NUR ---
DR ANTUNEZ AT BEDSIDE. UPDATE GIVEN. NO NEW ORDERS AT THIS TIME. WILL CONTINUE TO MONITOR
[2019-07-16 13:48] LABS: ERYTHROCYTE SEDIMENTATION RATE 47 mm/hr (0-20)
--- NOTE | 2019-07-16 15:00 | NUR ---
PT RESTING IN BED. NO ACUTE SIGNS OF DISTRESS NOTED. REASSESSMENT COMPLETED. WILL CONTINUE TO MONITOR
[2019-07-16 16:50] LABS: APPEARANCE HAZY (CLEAR); BILIRUBIN NEGATIVE (NEGATIVE); COLOR YELLOW (YELLOW); GLUCOSE NEGATIVE (NEGATIVE); KETONE NEGATIVE (NEGATIVE); NITRITE NEGATIVE (NEGATIVE); PROTEIN 1+ mg/dL (NEGATIVE); SPECIFIC GRAVITY 1.015 (1.005-1.020); UROBILINOGEN NORMAL (NORMAL)
[2019-07-16 16:51] LABS: BACTERIA MANY /hpf (NEGATIVE); WHITE CELLS - URINE >50 /hpf (NEGATIVE); YEAST >1+ WITH HYPHAE /hpf (NONE SEEN)
[2019-07-16 17:07] LABS: CREATININE - URINE 112.5 mg/dL (30-125)
[2019-07-16 17:08] LABS: PRO/CRE RATIO URINE 3.2 mg/g; PROTEIN - URINE 364.7 mg/dL (0.0-11.9)
--- NOTE | 2019-07-16 17:35 | NUR ---
PT HAD A RESIDUAL VOLUME OF 510. DISCUSSED WITH DR HEARD. ORDER RECEIVED TO HOLD TUBE FEEDINGS OVERNIGHT AND RESTART IN THE MORNING.
--- NOTE | 2019-07-16 18:38 | MORECARE ---
CASE MANAGEMENT DISCHARGE SUMMARY PATIENT: CORNELL ROBERTSON UNIT: [id number] ADM DATE: 07/08/19 AGE: 69 : 52 SEX: M ROOM/BED: D.2313 AUTHOR: JODI,DOC PHYSICIAN: REFERRING PHYSICIAN: AUDRA HAAS MD DATE OF SERVICE: 07/16/19 Discharge Plan Patient Name: CORNELL ROBERTSON Facility: [facility]:[place] : 1950 Planned Disposition: Anticipated Discharge Date: Discharge Date: Expected LOS: Initial Reviewer: [email or web address] Initial Review Date: 07/08/2019 Generated: 07/16/19 7:38 pm Comments DCP- Discharge Planning Updated by [email or web address]: Ramona Salcedo on 07/16/19 5:[address] Patient Name: CORNELL ROBERTSON Admission Status: ER Accout number: [id number] Admission Date: 07-08-2019 : 1950 Admission Diagnosis: Attending: AUDRA HAAS Current LOS: 2 Anticipated DC Date: Planned Disposition: Primary Insurance: MEDICARE A & B Discharge Planning Comments: CM called and spoke with patient's son Osorio Iqbal after explaining CM role and obtaining verbal consent. Patient is currently on vent. Patient coded while he was at [facility] and then went to [facility] then air lifted here. Osorio states that he has been in and out of hospitals, rehab facilities within the last year. Osorio plans on patient returning to [facility] upon discharge. CM will contact [place] to assure that he can come back to facility at discharge and find out what status (bed type) he was in. CM will continue to follow and assist as needed with discharge planning / needs. Pharmacy Operations Coordinator: Ramona Salcedo Appended by Ramona Salcedo on 07/10/2019 18:35 EQUIPMENT TECHNICIAN: Osorio patient's son wants to make sure patient remains a FULL CODE. DCP- Discharge Planning Updated by [id number]: Ramona Salcedo on 07/11/19 8:[address] CM attempted to call [facility] [phone] each time facility would answer but they could not hear CM. CM tried on two different phones to assure it wasn't phone on this end. CM will continue to try to contact facility to find out bed status. DCPIA - Discharge Planning Initial Assessment Updated by [id number]: Ramona Salcedo on 07/10/19 6:28 pm * PCP KIMANI ROBERTSON * [facility] * Preadmission Environment Long-Term Facility * Facility Name [facility] * ADLs Partial Dependent * Partial ADLs (Assistance needed) Ambulation Bathing Dressing Eating Medication Management Toileting Transfers * List name and contact numbers for known caregivers / representatives who currently or will assist patient after discharge: OSORIO PERRY - [phone] * Verbal permission to speak to the caregivers and representatives has been obtained from the patient. N/A * Community resources currently utilized None * Additional services required to return to the preadmission environment? No * Can the patient safely return to the preadmission environment? Yes * Has this patient been hospitalized within the prior 30 days at any hospital? No Last DP export: 07/11/19 8:36 p Patient Name: CORNELL ROBERTSON Page [id number] at 1838 All edits/amendments must be made on the electronic document DICTATION DATE: 07/16/191837 EVENT CREW TECHNICIAN: ELIA 07/16/191837 RPT#: [id number] DC DATE: STATUS: ADM IN [facility] [address] [place] [address] END OF REPORT
--- NOTE | 2019-07-16 19:00 | NUR ---
Report received from off going nurse. Pt is laying in bed intubated and sedated. Pt repositioned for comfort. Oral care performed. No further needs noted. No s/s of distress. Will continue to monitor.
--- NOTE | 2019-07-16 21:00 | NUR ---
Pt is resting in bed intubated and sedated. Pt repositioned for comfort. Oral care performed. No further needs noted. No s/s of distress. Will continue to monitor.
--- NOTE | 2019-07-16 23:00 | NUR ---
Reassessment completed, see flowsheet for details. Pt repositioned for comfort. Oral care performed. No further needs noted. No s/s of distress. Will continue to monitor.
[2019-07-17] VITALS (24 sets, daily range): BP systolic 91–139; BP diastolic 51–104
[2019-07-17 05:28] LABS: ALBUMIN 2.3 g/dL (3.4-5.0); ANION GAP 12.8 mmol/L (8-16); BILIRUBIN - TOTAL 0.91 mg/dL (0.2-1.3); CALCIUM 7.5 mg/dL (8.5-10.1); CARBON DIOXIDE 27.9 mmol/L (21.0-32.0); CREATININE - SERUM 2.9 mg/dL (0.6-1.3); MAGNESIUM - SERUM 1.7 mg/dL (1.8-2.4); POTASSIUM - SERUM 3.7 mmol/L (3.5-5.1); PROTEIN - SERUM 5.9 g/dL (6.4-8.2)
[2019-07-17 05:32] LABS: BASOPHILS 0.4 % (0-2); EOSINOPHILS 0.8 % (0-7); HEMATOCRIT 23.7 % (42.0-54.0); IMMATURE GRANULOCYTES 0.8 % (0-5); LYMPHOCYTES 21.1 % (15-50); MCH 29.6 pg (26.0-34.0); MCHC 31.6 g/dL (31.0-37.0); MCV 93.7 fL (80.0-100.0); MEAN PLATELET VOLUME 10.5 fL (7.4-10.4); MONOCYTES 12.1 % (2-11); NEUTROPHILS 64.8 % (40-80); PLATELET COUNT 246 10x3/uL (130-400); RBC 2.53 10x6/uL (4.20-6.10); RDW 18.7 % (11.5-14.5); WBC 10.1 10x3/uL (4.8-10.8)
[2019-07-17 05:37] LABS: HEMOGLOBIN 7.5 g/dL (13.5-17.5)
--- NOTE | 2019-07-17 07:00 | NUR ---
OPENS EYES TO STIMULATION, MOVING ARMS AND LEGS. BILATERAL LUNG SOUNDS EQUAL ETT SECURE TO VENT OG CLAMPED. SANABRIA PATENT WITH JORDAN URINE SMALL AMOUNT IN BAG. LEFT SUBCLAVIAN TRIPLE LUMEN INFUSING WITH DOBUTAMINE AT 0.5 MCG/KG/MIN. LEFT UPPER ARM MID LINE INFUSING WITH FENTANYL AT 200 MCG, VERSED AT 2 MG HOUR. D51/2NS AT 30 ML HOUR. HEELS BRIDGES ON PILLOW. HEAD OF BED ELEVATED 30 DEGREES. FIRST STEP MATTRESS ON BED.
--- NOTE | 2019-07-17 08:45 | NUR ---
Nutrition follow-up: TF on hold due to elevated residuals (510 ml) Labs reviewed; BUN/Cr elevated Due to pt not tolerating Pulmocare, RDN changing TF formula to Osmolite 1.0 gregory @ 25 ml/hr with gradual increase to goal rate of 50 ml/hr. RDN following.
--- NOTE | 2019-07-17 08:55 | NUR ---
RESIDUAL CHECKED ON CLAMPED NG 170 ML REMOVED. TALKED WITH DIETICAN ABOUT TUBE FEEDING.
--- NOTE | 2019-07-17 12:00 | NUR ---
TUBE FEEDING STARTED OSMOLITE AT 25 ML HOUR. NO FLUSHES. LESS 20CC RESIDUAL
--- NOTE | 2019-07-17 13:00 | NUR ---
UNIT OF BLOOD INFUSING NO REACTION NOTED. RESTING COMFORTABLY.
--- NOTE | 2019-07-17 15:30 | NUR ---
UNIT OF BLOOD COMPLETE PATIENT TOLERATED WELL NO REACTION NOTED.
--- NOTE | 2019-07-17 17:24 | MORECARE ---
CASE MANAGEMENT DISCHARGE SUMMARY PATIENT: CORNELL ROBERTSON UNIT: [id number] ADM DATE: 07/08/19 AGE: 69 : 52 SEX: M ROOM/BED: D.2313 AUTHOR: JODI,DOC PHYSICIAN: REFERRING PHYSICIAN: AUDRA HAAS MD DATE OF SERVICE: 07/17/19 Discharge Plan Patient Name: CORNELL ROBERTSON Facility: [facility]:[place] : 1950 Planned Disposition: Anticipated Discharge Date: Discharge Date: Expected LOS: Initial Reviewer: [email or web address] Initial Review Date: 07/08/2019 Generated: 07/17/19 6:24 pm Comments DCP- Discharge Planning Updated by [email or web address]: Ramona Salcedo on 07/17/19 4:[address] [facility]. [phone]. She stated that the patient was in a Medicare SNF bed prior to code being sent out. He will be placed in a Medicaid pending bed upon return d/t him not being able to tolerate therapy. CM will continue to follow and assist as needed with discharge planning needs. DCP- Discharge Planning Updated by [id number]: Ramona Salcedo on 07/16/19 5:[address] Patient Name: CORNELL ROBERTSON Admission Status: ER Accout number: [id number] Admission Date: 07-08-2019 : 1950 Admission Diagnosis: Attending: AUDRA HAAS Current LOS: 2 Anticipated DC Date: Planned Disposition: Primary Insurance: MEDICARE A & B Discharge Planning Comments: CM called and spoke with patient's son Osorio Iqbal after explaining CM role and obtaining verbal consent. Patient is currently on vent. Patient coded while he was at [facility] and then went to [facility] then air lifted here. Osorio states that he has been in and out of hospitals, rehab facilities within the last year. Osorio plans on patient returning to [facility] upon discharge. CM will contact [facility] to assure that he can come back to facility at discharge and find out what status (bed type) he was in. CM will continue to follow and assist as needed with discharge planning / needs. And Drying Supervisor Cooking Casing: Ramona Salcedo Appended by Ramona Salcedo on 07/10/2019 18:35 FULL STACK DEVELOPER: Osorio patient's son wants to make sure patient remains a FULL CODE. DCP- Discharge Planning Updated by [id number]: Ramona Salcedo on 07/11/19 8:[address] CM attempted to call [facility] [phone] each time facility would answer but they could not hear CM. CM tried on two different phones to assure it wasn't phone on this end. CM will continue to try to contact facility to find out bed status. DCPIA - Discharge Planning Initial Assessment Updated by [email or web address]: Ramona Salcedo on 07/10/19 6:28 pm * PCP KIMANI ROBERTSON * [facility] * Preadmission Environment Residential Facility * Facility Name [facility] * ADLs Partial Dependent * Partial ADLs (Assistance needed) Ambulation Bathing Dressing Eating Medication Management Toileting Transfers * List name and contact numbers for known caregivers / representatives who currently or will assist patient after discharge: OSORIO IQBAL - SON - [phone] * Verbal permission to speak to the caregivers and representatives has been obtained from the patient. N/A * Community resources currently utilized None * Additional services required to return to the preadmission environment? No * Can the patient safely return to the preadmission environment? Yes * Has this patient been hospitalized within the prior 30 days at any hospital? No Last DP export: 07/16/19 5:38 p Patient Name: CORNELL ROBERTSON Page [phone] at 1724 All edits/amendments must be made on the electronic document DICTATION DATE: 07/17/191723 HISTORICAL GUIDE: ELIA 07/17/191723 RPT#: [id number] DC DATE: STATUS: ADM IN [facility] [address] [place] [address] END OF REPORT
--- NOTE | 2019-07-17 17:30 | NUR ---
RESIDUAL FROM TUBE FEEDING 25 ML. NO CHANGE IN TUBE FEEDING RATE. REPOSITIONED ON RIGHT SIDE. SUCTIONED ORAL CARE DONE. MEDIPLEX STILL ON BUTTOCK. DRY AND INTACT. NO SKIN BREAKDOWN NOTED. SUCTION MOD AMOUTN WHITE SPUTUM FROM ETT AND ORALLY. UMBILLICAL HERNIA NOTED. HEELS BRIDGED ON PILLOW. HEAD OF BED ELEVATED AT 30 DEGREES. DOBUTAMINE AT 1 MCG/KG/MIN. HEART IN LOW 120'S. DOBUTAMINE NOT INCREASED DUE TO HEART RATE. FENTANYL AT 200 MCG/MIN. VERSED 2 MG. D51/2NS AT 30 ML HOUR. OPENS EYES TO STIMULATION LIFTS ARMS UP AND DOWN. BILATERAL LUNG SOUNDS EQUAL.
--- NOTE | 2019-07-17 19:00 | NUR ---
SHIFT ASSESSMENT COMPLETED. PT CARE ASSUMED. MONITORS ON AND WORKING, VITALS STABLE, VENT SETTINGS NOTED. SEE FLOW SHEET FOR FURTHER DETAILS, WILL CONTINUE TO OBSERVE.
[2019-07-18] VITALS (60 sets, daily range): BP systolic 97–135; BP diastolic 61–94
[2019-07-18 04:43] LABS: BASOPHILS 0.4 % (0-2); EOSINOPHILS 0.4 % (0-7); HEMOGLOBIN 8.5 g/dL (13.5-17.5); LYMPHOCYTES 19.1 % (15-50); MCH 30.2 pg (26.0-34.0); MCHC 32.7 g/dL (31.0-37.0); MCV 92.5 fL (80.0-100.0); MEAN PLATELET VOLUME 10.1 fL (7.4-10.4); MONOCYTES 10.9 % (2-11); NEUTROPHILS 67.2 % (40-80); RBC 2.81 10x6/uL (4.20-6.10); RDW 18.3 % (11.5-14.5)
[2019-07-18 04:45] LABS: PLATELET COUNT 310 10x3/uL (130-400); WBC 12.8 10x3/uL (4.8-10.8)
[2019-07-18 05:03] LABS: ALBUMIN 2.3 g/dL (3.4-5.0); ANION GAP 12.7 mmol/L (8-16); BILIRUBIN - TOTAL 1.11 mg/dL (0.2-1.3); CALCIUM 7.3 mg/dL (8.5-10.1); CARBON DIOXIDE 27.2 mmol/L (21.0-32.0); CREATININE - SERUM 3.2 mg/dL (0.6-1.3); MAGNESIUM - SERUM 1.9 mg/dL (1.8-2.4); PHOSPHOROUS 3.5 mg/dL (2.5-4.9); POTASSIUM - SERUM 3.9 mmol/L (3.5-5.1); PROTEIN - SERUM 5.5 g/dL (6.4-8.2)
[2019-07-18 06:09] LABS: SPE - ALBUMIN 2.4 g/dL (2.9-4.4); SPE - ALPHA-1 GLOBULIN 0.3 g/dL (0.0-0.4); SPE - ALPHA-2 GLOBULIN 0.6 g/dL (0.4-1.0); SPE - BETA GLOBULIN 0.6 g/dL (0.7-1.3); SPE - GAMMA GLOBULIN 0.9 g/dL (0.4-1.8); SPE - M-SPIKE Not Observed g/dL (Not Observed); SPE - TOTAL PROTEIN 4.8 g/dL (6.0-8.5)
--- NOTE | 2019-07-18 07:15 | NUR ---
REPORT RECEIVED. 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 PT ON VENT. SETTINGS PER RT. 7.5 ETT. 24CM AT LIP. VSS. PT HAS LEFT SUBCLAVIAN WITH FENTANYL AND VERSED INFUSING. ALSO HAS DOBUTAMINE. PT HAS SANABRIA. PT HAS TUBE FEEDING. WILL CONTINUE TO MONITOR.
--- NOTE | 2019-07-18 09:30 | NUR ---
PT SUCTIONED AND REPOSITIONED. VSS. WILL CONTINUE TO MONITOR.
--- NOTE | 2019-07-18 11:30 | NUR ---
RESIDUAL LESS THAN 100ML. OSMOLITE AT 25ML/HR. VSS. WILL CONTINUE TO MONITOR.
--- NOTE | 2019-07-18 13:02 | NUR ---
PROTEIN GIVEN WITH TUBE FEED. PT REPOSITIONED. WILL CONTINUE TO MONITOR.
--- NOTE | 2019-07-18 14:19 | NUR ---
PT INCONTINENT OF BOWEL. PT CLEANED UP. MEPILEX TO COCCYX CHANGED. PRESSURE ULCER CLEANED. PT REPOSITIONED AND SUCTIONED.
--- NOTE | 2019-07-18 16:45 | NUR ---
PT REPOSITIONED. PT SUCTIONED. VSS. WILL CONTINUE TO MONITOR.
--- NOTE | 2019-07-18 17:23 | NUR ---
VSS. SUCTIONED. ZOSYN INFUSING. WILL CONTINUE TO MONITOR.
--- NOTE | 2019-07-18 19:00 | NUR ---
SHIFT ASSESSMENT COMPLETED. PT CARE ASSUMED. MONITORS ON AND WORKING, VITALS STABLE. SEE FLOW SHEET FOR FURTHER DETAILS. WILL CONTINUE TO OBSERVE.
--- NOTE | 2019-07-18 21:00 | NUR ---
PT TURNED AND REPOSITIONED FOR COMFORT, MONITORS ON AND WORKING, WILL CONTINUE TO OBSERVE.
--- NOTE | 2019-07-18 23:00 | NUR ---
800 ML RESIDUAL. TUBE FEEDS TURNED OFF AT THIS TIME, WILL REASSES.
--- NOTE | 2019-07-18 23:00 | NUR ---
PT TURNED AND REPOSITIONED FOR COMFORT. MONITORS ON AND WORKING, VITALS STABLE, SEE FLOW SHEET FOR FURTHER DETAILS. WILL CONTINUE TO OBSERVE.
[2019-07-19] VITALS (24 sets, daily range): BP systolic 103–162; BP diastolic 63–119
--- NOTE | 2019-07-19 05:00 | NUR ---
PT TURNED AND REPOSITIONED FOR COMFORT, MONITORS ON AND WORKING, NO OTHER CHANGES AT THIS TIME, WILL CONTINUE TO OBSERVE.
[2019-07-19 05:38] LABS: BASOPHILS 0.4 % (0-2); EOSINOPHILS 0.3 % (0-7); HEMATOCRIT 26.8 % (42.0-54.0); HEMOGLOBIN 8.7 g/dL (13.5-17.5); LYMPHOCYTES 24.3 % (15-50); MCH 30.4 pg (26.0-34.0); MCHC 32.5 g/dL (31.0-37.0); MCV 93.7 fL (80.0-100.0); MEAN PLATELET VOLUME 10.2 fL (7.4-10.4); MONOCYTES 10.6 % (2-11); NEUTROPHILS 60.4 % (40-80); RBC 2.86 10x6/uL (4.20-6.10); RDW 18.4 % (11.5-14.5); WBC 12.3 10x3/uL (4.8-10.8)
[2019-07-19 05:53] LABS: PLATELET COUNT 428 10x3/uL (130-400)
--- NOTE | 2019-07-19 07:00 | NUR ---
PT REPORT RECEIVED FROM INTERLOCKING INSTALLER NURSE. NO ACUTE SIGNS OF DISTRESS NOTED. SHIFT ASSESSMENT COMPLETED. WILL CONTINUE TO MONITOR
--- NOTE | 2019-07-19 07:38 | NUR ---
INCREASED PT FIO2 TO 40%
[2019-07-19 07:57] LABS: ALBUMIN 2.3 g/dL (3.4-5.0); ANION GAP 14.2 mmol/L (8-16); BILIRUBIN - TOTAL 0.94 mg/dL (0.2-1.3); CALCIUM 7.8 mg/dL (8.5-10.1); CARBON DIOXIDE 27.7 mmol/L (21.0-32.0); CREATININE - SERUM 3.8 mg/dL (0.6-1.3); MAGNESIUM - SERUM 2.2 mg/dL (1.8-2.4); POTASSIUM - SERUM 3.9 mmol/L (3.5-5.1); PROTEIN - SERUM 6.4 g/dL (6.4-8.2)
--- NOTE | 2019-07-19 09:00 | NUR ---
PT RESTING IN BED. ORAL CARE PROVIDED. NO ACUTE SIGNS OF DISTRESS NOTED. WILL CONTINUE TO MONITOR
--- NOTE | 2019-07-19 09:10 | NUR ---
CALLED PHARMACY REGARDING DIFLUCAN FOR PT. TALKED TO GORAN. HE STATED THAT THEY HAD TO MAKE THE MIXTURE THEN HE WOULD HAVE A TECH BRING IT UP.
--- NOTE | 2019-07-19 09:51 | NUR ---
STILL WAITING ON THE DIFLUCAN PREMIX FROM PHARMACY. NOT IN [facility] OR IN [place].
--- NOTE | 2019-07-19 11:00 | NUR ---
PT RESTING IN BED. REASSESSMENT COMPLETED. WILL CONTINUE TO MONITOR
--- NOTE | 2019-07-19 12:32 | NUR ---
NUTRITION F/U NURSING REPORTS PT WITH HI RESIDUALS LAST PM. OSMOLITE 1.0 BRIANNE CURRENTLY OFF. PT ON REGLAN. NURSING TO RESTART TUBE FEEDS HOPEFULLY TODAY. RD FOLLOWING
[2019-07-19 13:10] LABS: FUNGUS CULTURE RESULT 1 Candida glabrata (()); FUNGUS MYCOLOGY CULTURE Preliminary report (())
--- NOTE | 2019-07-19 13:15 | NUR ---
DR ANTUNEZ AT BEDSIDE. UPDATE GIVEN. NO NEW ORDERS AT THIS TIME. WILL CONTINUE TO MONITOR
--- NOTE | 2019-07-19 15:15 | NUR ---
REASSESSMENT COMPLETED. PT RESTING IN BED. NO ACUTE SIGNS OF DISTRESS NOTED. WILL CONTINUE TO MONITOR
[2019-07-19 17:04] LABS: UPE RAND - ALBUMIN 65.3; UPE RAND - ALPHA 1 GLOBULIN 2.9; UPE RAND - BETA GLOBULIN 12.4
[2019-07-19 17:05] LABS: UPE RAND - GAMMA GLOBULIN 12.4
--- NOTE | 2019-07-19 17:10 | NUR ---
PT RESTING IN BED. ORAL CARE AND ADL PERFORMED AT THIS TIME. NO VISIBLE SIGNS OF DISTRESS NOTED. WILL CONTINUE TO MONITOR
--- NOTE | 2019-07-19 19:00 | NUR ---
pt is laying in bed on back at this time. isolation observed, restrained observed. checked restraint areas and all look well with good capilary refill in fingers. Iv sites look patent c no s/s of infiltration. voss is secure and draining. tube feeding observed going at 10ml per hour. i will check residule soon. will perform shift assessment and document. vital signs are stable. bed is low,side railsx2,call light within reach. will conitnue to monitor
--- NOTE | 2019-07-19 20:14 | NUR ---
checked residule of tube feeding. is 260ml at this time at only 10ml per hr. had recieved in report that pt has been having high residules however had had a low residuel during the day of only 15ml. so that he was started back on his tube feeding at order at a slow rate of 10ml. i stopped the feeding at this time due to high residule. pt abd is also distended, hard, bowel sounds are heard in all 4 quadrents however are all hypoactive. hooked up og-tube to intermitten suction as advised by Sylvie MARTÍNEZauditor in charge nurse and to notify . will notify and continue to monitor. vital signs are stable at this time. bed is low,side railsx2,call light within reach. restraints are observed and in good position. will conitnue to monitor
--- NOTE | 2019-07-19 20:55 | NUR ---
TShelly FROM TO HOLD TUBE FEEDINGS UNTILL MORINGIN AND TO GET A KUB IN THE MORINING. T.O READ BACK CORRECT.
--- NOTE | 2019-07-19 22:16 | NUR ---
MONITORING PT AND HE IS OPEINIGN EYES AND PUTTING HIS LEFT ARM UP AND DOWN. HIS HR IS 127 A.FLUTTER AND BP IS 150/87 MAP 113. PUPILS ARE A 4 BILAT AND QUICK TO CHANGE. WENT UP ON FENTANYL 250MCG ORDERED TO TITRATE. PERFOMRED ORAL CARE AT THIS TIME. WILL CONTINUE TO MONITOR. BED IS LOW,SIDE RAILSX2,CALL LIGHT WITHIN REACH.
[2019-07-20] VITALS (25 sets, daily range): BP systolic 137–173; BP diastolic 68–102
--- NOTE | 2019-07-20 00:05 | NUR ---
PT IS RESTING IN BED WITH EYES CLOSED. HE STILL SLIGHTLY OPENS EYES WHEN CALLED HIS NAME BUT SEEMS TO BE MORE COMFORTABLE SINCE INCREASING FENTYLE ORDERED TO TITRATE. VITAL SIGNS ARE STABLE. RESTRAINTS WERE TAKEN OFF AND REAPPLIED AT THIS TIME TO CHECK CIRCULATION. ORAL CARE WAS DONE. HOB IS 30 DEGREES. BED IS LOW,SIDE RAILSX2, CALL LIGHT WIHTIN REACH.WILL CONINTUE TO MONITOR
--- NOTE | 2019-07-20 01:18 | NUR ---
PT IS RESTING WITH EYES CLOSED SEDATED AND INTUBATED. VITAL SIGNS ARE STABLE. HAD JUST DONE SEDATION ASSESSMENT AND RESTRAINT ASSESSMENT ALREADY DOCUMENTED. PT IS ON RIGHT SIDE, BOTH LEGS ARE PROPPED WITH A PILLOW AND HEALS ARE OFF THE BED. BED IS LOW,SIDE RAILSX2,CALL LIGHT WITHIN REACH. WILL CONITNUE TO MONITOR
--- NOTE | 2019-07-20 03:00 | NUR ---
I HAD PROPPED PT UP ON HIS LEFT SIDE HOWEVER HE DID NOT TOLERATE WELL SINCE HIS OXYGEN SATURATION WENT DOWN TO BE IN THE HIGH 70S AND 80S. WHEN RESPOSITIONED BACK TO HIS BACK PT O2 SAT WENT UP TO 99%. I HAVE HIM SLIGHLY TILTED TO THE LEFT, LEGS ARE PROPED ON PILLOWS WITH HEALS OFF THE BED. PERFOMED ORAL CARE. VITAL SIGNS ARE NOW STABLE. PERFOMRED SEDATION ASSESSMENT AT THIS TIME AND REMOVED RESTRAINTS AND REPLACED AFTER CHECKING CAP REFILL WHICH IS WNL. VITAL SIGNS ARE STBALE NOW, BED IS LOW,SIDE RAILSX2,CALL LIGHT WIHTIN REACH.
--- NOTE | 2019-07-20 05:00 | NUR ---
PT IS RESTING IN BED WITH EYES CLOSED, SEDATED AND INTUBATED. INTUBATION IS SECURE. PT IS TURNED TO BACK WITH HEELS ELEVATED OFF THE BED BY PILLOWS. OG-TUBE IS STILL ON INTERMITTEN SUCTION AND IS PULLING OUT WHITISH BROWN TUBE FEEDING. THERE IS AN ORDER TO TRY AND RE-START TUBE FEEDING IN THE MORNING. VITAL SIGNS ARE STABLE. RESTRAINTS WERE TAKEN OFF AND PUT BACK ON WHILE CHECKING CAP REFILL WHICH IS LESS THAN 3 SECONDS. ALL LINES ARE SECURE. ISOLATION WAS OBSERVED. BED IS LOW,SIDE RAILSX2,CALL LIGHT IS WITHIN REACH. WILL CONTINUE TO MONITOR
[2019-07-20 05:05] LABS: BASOPHILS 0.4 % (0-2); EOSINOPHILS 0.5 % (0-7); HEMATOCRIT 25.3 % (42.0-54.0); HEMOGLOBIN 8.1 g/dL (13.5-17.5); IMMATURE GRANULOCYTES 4.4 % (0-5); LYMPHOCYTES 22.9 % (15-50); MCH 29.9 pg (26.0-34.0); MCV 93.4 fL (80.0-100.0); MEAN PLATELET VOLUME 9.5 fL (7.4-10.4); NEUTROPHILS 61.8 % (40-80); PLATELET COUNT 377 10x3/uL (130-400); RBC 2.71 10x6/uL (4.20-6.10); RDW 18.3 % (11.5-14.5); WBC 10.2 10x3/uL (4.8-10.8)
[2019-07-20 05:27] LABS: ALBUMIN 2.4 g/dL (3.4-5.0); ANION GAP 14.4 mmol/L (8-16); CALCIUM 7.8 mg/dL (8.5-10.1); CREATININE - SERUM 3.9 mg/dL (0.6-1.3); MAGNESIUM - SERUM 2.1 mg/dL (1.8-2.4); POTASSIUM - SERUM 3.4 mmol/L (3.5-5.1); PROTEIN - SERUM 6.2 g/dL (6.4-8.2)
--- NOTE | 2019-07-20 07:00 | NUR ---
BEDSIDE REPORT RECEIVED. SHIFT ASSESSMENT COMPLETED PER FLOWSHEET, SEE FLOWSHEET FOR INFORMATION. NO ACUTE NEEDS OR DISTRESS NOTED AT THIS TIME. WILL CONT TO MONITOR.
--- NOTE | 2019-07-20 09:00 | NUR ---
ORAL AND INLINE SUCTIONED, ORAL CARE GIVEN. WILL CONT TO MONITOR.
--- NOTE | 2019-07-20 11:00 | NUR ---
REASSESSMENT COMPLETED PER FLOWSHEET, SEE FLOWSHEET FOR INFORMATION.
--- NOTE | 2019-07-20 11:57 | NUR ---
SON OSORIO CALLED AND UPDATE GIVEN. PT INFORMED NURSE THAT "IF THERE'S NOT A GOOD OUTCOME, WE DON'T NEED TO CONTINUE DOING THAT TO HIM" DR ANTUNEZ NOTIFIED. WILL CONT TO MONITOR.
--- NOTE | 2019-07-20 13:00 | NUR ---
TURNED PT PER COMFORT. WILL CONT TO MONITOR.
--- NOTE | 2019-07-20 15:00 | NUR ---
REASSESSMENT COMPLETED PER FLOWSHEET, SEE FLOWSHEET FOR INFORMATION. WILL CONT TO MONITOR.
--- NOTE | 2019-07-20 17:00 | NUR ---
TURNED PT PER COMFORT. PT RESTING IN BED WITH EYES CLOSED. WILL CONT TO MONITOR.
--- NOTE | 2019-07-20 19:00 | NUR ---
RECIVED BEDSIDE SHIFT REPORT. OBSERVED ISOLATION AND RESTRAINTS. RESTRAINTS WERE TAKEN OFF TO ASSESS CAP REFILL AND EXTREMITES THEN REPLACED BACK ON. CAP REFILL IS LESS THAN 3 SEC. PT IS INTUBATED/SEDATED AND WILL OPEN EYES SLIGHTLY TO PAIN RESPONSE. HE IS TURNED ONTO HIS RIGHT SIDE AT THIS TIME WITH HEELS ELEVATED OFF THE BED. 1ST STEP OVER LAY IS OBSERVED. SANABRIA IS INTACT AND DRAINING. ALL IV TUBING IS SECURE AND IN DATE. TUBE FEEDING IS STILL ON HOLD AT THIS TIME. VITAL SIGNS ARE STABLE. BED IS LOW,SIDE RAILSX2,CALL LIGHT WIHTIN REACH.WILL CONTINUE TO MONITOR
--- NOTE | 2019-07-20 21:00 | NUR ---
PT IS RESTING IN BED WITH EYES CLOSED. VITALS ARE STABLE. ORAL CARE PERFOMED. BED IS LOW,SIDE RAILSX2,CCALL LIGHT WITHIN REACH. WILL CONITNUE TO MONITOR
--- NOTE | 2019-07-20 23:26 | NUR ---
ASSESSED PT AND TURNED TO HIS BACK AT THIS TIME. ORAL CARE PERFOMED. VITAL SIGNS ARE STABLE. BED IS LOW,ISDE RAILSX2,CALL LIGHT WITHIN REACH. WILL CONITNUE TO MONITOR
[2019-07-21] VITALS (24 sets, daily range): BP systolic 126–152; BP diastolic 70–96
--- NOTE | 2019-07-21 01:44 | NUR ---
PT IS RESTING IN BED WITH EYES CLOSED. VITAL SIGNS ARE STABLE. BED IS LOW,SIDE RAILSX2,CALL LIGHT WITHIN REACH.WILL CONITNUE TO MONITOR
--- NOTE | 2019-07-21 05:00 | NUR ---
PERFORMED TOTOAL BED BATH WITH CHG AT THIS TIME. PT TOLERATED WELL. I UNHOOKED RESTRAINTS AND TOOK THEM OFF WHILE DOING BATH. PT WAS PROOPED TO LEFT SIDE. RESTRAINTS WERE PUT BACK ON ORDERED. VITAL SIGNS ARE STABLE. FEET ARE ELEVATED OFF BED WITH PILLOW UNDER KNEES AND LEGS. BED IS LOW,SIDE RAILSX2,CALL LIGHT WITHIN REACH. WILL CONITNUE TO MONITOR
[2019-07-21 06:17] LABS: BASOPHILS 0.6 % (0-2); EOSINOPHILS 0.8 % (0-7); HEMATOCRIT 25.5 % (42.0-54.0); HEMOGLOBIN 8.2 g/dL (13.5-17.5); IMMATURE GRANULOCYTES 4.3 % (0-5); LYMPHOCYTES 19.1 % (15-50); MCH 30.3 pg (26.0-34.0); MCHC 32.2 g/dL (31.0-37.0); MCV 94.1 fL (80.0-100.0); MEAN PLATELET VOLUME 9.1 fL (7.4-10.4); MONOCYTES 10.2 % (2-11); PLATELET COUNT 402 10x3/uL (130-400); RBC 2.71 10x6/uL (4.20-6.10); RDW 18.8 % (11.5-14.5)
[2019-07-21 06:38] LABS: ALBUMIN 2.5 g/dL (3.4-5.0); ANION GAP 17.1 mmol/L (8-16); BILIRUBIN - TOTAL 0.88 mg/dL (0.2-1.3); CALCIUM 8.3 mg/dL (8.5-10.1); CARBON DIOXIDE 23.6 mmol/L (21.0-32.0); CREATININE - SERUM 3.8 mg/dL (0.6-1.3); POTASSIUM - SERUM 3.7 mmol/L (3.5-5.1); PROTEIN - SERUM 6.4 g/dL (6.4-8.2); VANCOMYCIN - RANDOM 12.9 ug/mL (10.0-20.0)
--- NOTE | 2019-07-21 07:00 | NUR ---
BEDSIDE REPORT RECEIVED. SHIFT ASSESSMENT COMPLETED PER FLOWSHEET, SEE FLOWSHEET FOR INFORMATION. PT RESTING IN BED WITH EYES CLOSED. NO ACUTE NEEDS OR DISTRESS NOTED AT THIS TIME. WILL CONT TO MONITOR.
--- NOTE | 2019-07-21 09:00 | NUR ---
0900 MEDICATIONS GIVEN. PT RESTING IN BED WITH EYES CLOSED. WILL CONT TO MONITOR.
--- NOTE | 2019-07-21 11:00 | NUR ---
REASSESSMENT COMPLETED PER FLOWSHEET, SEE FLOWSHEET FOR INFORMATION. ORAL CARE GIVEN, ORAL AND INLINE SUCTIONED. NO ACUTE NEEDS OR DISTRESS NOTED AT THIS TIME. WILL CONT TO MONITOR.
--- NOTE | 2019-07-21 13:00 | NUR ---
ORAL CARE GIVEN, REPOSITIONED PER COMFORT. NO ACUTE NEEDS OR DISTRESS NOTED AT THIS TIME. AT BEDSIDE. WILL CONT TO MONITOR.
--- NOTE | 2019-07-21 15:00 | NUR ---
REASSESSMENT COMPLETED PER FLOWSHEET, SEE FLOWSHEET FOR INFORMATION. NO ACUTE NEEDS OR DISTRESS NOTED AT THIS TIME. WILL CONT TO MONITOR.
--- NOTE | 2019-07-21 17:00 | NUR ---
CHECKED OGT RESIDUAL, 250ML+ OF RESIDUAL. ATTACHED OGT TO LOW INTERMITENT SUCTION. NOTIFIED , NO NEW ORDERS. WILL CONT TO MONITOR.
--- NOTE | 2019-07-21 18:02 | NUR ---
NOTIFIED. NEW ORDERS RECEIVED.
--- NOTE | 2019-07-21 19:00 | NUR ---
Report received from off going nurse. Pt is laying in bed intubated and sedated at this time. Pt repositioned for comfort. Oral care performed. No further needs noted. Initial assessment completed, see flowsheet for details. No s/s of distress. Will continue to monitor.
[2019-07-22] VITALS (24 sets, daily range): BP systolic 89–172; BP diastolic 7–93
--- NOTE | 2019-07-22 01:00 | NUR ---
Pt is laying in bed intubated and sedated. Pt repositioned for comfort. Oral care performed. No s/s of distress noted. Will continue to monitor.
--- NOTE | 2019-07-22 03:00 | NUR ---
Reassessment completed, see flowsheet for details. Pt is laying in bed intubated and sedated. Pt repositioned for comfort. Oral care performed. No s/s of distress. Will continue to monitor.
--- NOTE | 2019-07-22 05:00 | NUR ---
Pt is laying in bed intubated and sedated. Pt repositioned for comfort. Oral care performed. No further needs noted. No s/s of distress noted. Will continue to monitor.
[2019-07-22 05:58] LABS: BASOPHILS 0.5 % (0-2); EOSINOPHILS 0.6 % (0-7); HEMATOCRIT 25.8 % (42.0-54.0); HEMOGLOBIN 8.3 g/dL (13.5-17.5); IMMATURE GRANULOCYTES 3.1 % (0-5); LYMPHOCYTES 26.1 % (15-50); MCH 30.3 pg (26.0-34.0); MCHC 32.2 g/dL (31.0-37.0); MCV 94.2 fL (80.0-100.0); MEAN PLATELET VOLUME 9.2 fL (7.4-10.4); MONOCYTES 9.2 % (2-11); NEUTROPHILS 60.5 % (40-80); PLATELET COUNT 440 10x3/uL (130-400); RBC 2.74 10x6/uL (4.20-6.10); RDW 19.1 % (11.5-14.5); WBC 9.3 10x3/uL (4.8-10.8)
[2019-07-22 06:00] LABS: ALBUMIN 2.7 g/dL (3.4-5.0); ANION GAP 16.2 mmol/L (8-16); BILIRUBIN - TOTAL 0.85 mg/dL (0.2-1.3); CALCIUM 8.2 mg/dL (8.5-10.1); CARBON DIOXIDE 26.4 mmol/L (21.0-32.0); CREATININE - SERUM 3.8 mg/dL (0.6-1.3); PHOSPHOROUS 4.6 mg/dL (2.5-4.9); POTASSIUM - SERUM 3.6 mmol/L (3.5-5.1); PROTEIN - SERUM 6.6 g/dL (6.4-8.2); VANCOMYCIN - RANDOM 14.9 ug/mL (10.0-20.0)
--- NOTE | 2019-07-22 07:30 | NUR ---
REPORT RECEIEVED. ASSESSMENT COMPLETE PER FLOW SHEET. VSS. PT RESTING COMFORTABLY WILL CONTINUE TO MONITOR
--- NOTE | 2019-07-22 08:43 | NUR ---
Nutrition follow-up: Pt remains intubated, sedated TF off due to residuals > 1000 ml Reglan started last week Labs reviewed Recommend starting ProcalAmine PPN @ 125 ml/hr if pt can tolerate increased volume until TF is tolerated. RDN following.
--- NOTE | 2019-07-22 11:00 | NUR ---
SON CALLED GIVEN UPDATE PT REQUIRING TRACH/PEG. SON STATED WAS UNABLE TO MAKE A DECISION AT THIS TIME WOULD CALL BACK IN 1 HR. AWAITING CALL BACK
--- NOTE | 2019-07-22 11:15 | NUR ---
REASSESSMENT COMPLETE PER FLOW SHEET. VSS. NO NEW CHANGES WILL CONTINUE TO MONITOR
--- NOTE | 2019-07-22 15:09 | NUR ---
SON CALLED BACK STATED TO PROCEED WITH TRACH AND PEG
--- NOTE | 2019-07-22 15:15 | NUR ---
REASSESSMENT COMPLETE PER FLOW SHEET. VSS. NO NEW CHANGES WILL CONTINUE TO MONITOR
--- NOTE | 2019-07-22 19:15 | NUR ---
BEDSIDE SHIFT REPORT COMPLETED - SHIFT ASSESSMENT COMPLETED SEE FLOWSHEET. PT INTUBATED/SEDATED VSS SEE FLOWSHEET FOR FULL DETAILS.
--- NOTE | 2019-07-22 19:35 | MORECARE ---
CASE MANAGEMENT DISCHARGE SUMMARY PATIENT: CORNELL ROBERTSON UNIT: [id number] ADM DATE: 07/08/19 AGE: 69 : 52 SEX: M ROOM/BED: D.2313 AUTHOR: JODI,DOC PHYSICIAN: REFERRING PHYSICIAN: AUDRA HAAS MD DATE OF SERVICE: 07/22/19 Discharge Plan Patient Name: CORNELL ROBERTSON Facility: [facility]:[place] : 1950 Planned Disposition: Anticipated Discharge Date: Discharge Date: Expected LOS: Initial Reviewer: [email or web address] Initial Review Date: 07/08/2019 Generated: 07/22/19 8:34 pm Comments DCP- Discharge Planning Updated by [email or web address]: Ramona Salcedo on 07/22/19 6:[address] CM called and spoke with son Osorio Iqbal [phone]. CM asked Osorio if patient is unable to wean off ventilator if they want him to be trached. Osorio stated yes that they want everything to be done for his Dad. CM asked if he was POA he stated it is just my brother Gonzalo Robertson [phone] and my mother Yoly Robertson [phone]. (still legally ). CM explained that nursing staff may be calling him back for consent later. He stated that would be fine and if he didn't answer then to leave a message. CM will continue to follow and assist as needed with discharge planning / needs. DCP- Discharge Planning Updated by [email or web address]: Ramona Salcedo on 07/17/19 4:[address] CM called and spoke with [facility]. [phone]. She stated that the patient was in a Medicare SNF bed prior to code being sent out. He will be placed in a Medicaid pending bed upon return d/t him not being able to tolerate therapy. CM will continue to follow and assist as needed with discharge planning needs. DCP- Discharge Planning Updated by [email or web address]: Ramona Salcedo on 07/16/19 5:[address] Patient Name: CORNELL ROBERTSON Admission Status: ER Accout number: [id number] Admission Date: 07-08-2019 : 1950 Admission Diagnosis: Attending: AUDRA HAAS Current LOS: 2 Anticipated DC Date: Planned Disposition: Primary Insurance: MEDICARE A & B Discharge Planning Comments: CM called and spoke with patient's son Osorio Iqbal after explaining CM role and obtaining verbal consent. Patient is currently on vent. Patient coded while he was at [facility] and then went to [facility] then air lifted here. Osorio states that he has been in and out of hospitals, rehab facilities within the last year. Osorio plans on patient returning to [facility] upon discharge. CM will contact [facility] to assure that he can come back to facility at discharge and find out what status (bed type) he was in. CM will continue to follow and assist as needed with discharge planning / needs. Assistant Hvac Mechanic: Ramona Salcedo Appended by Ramona Salcedo on 07/10/2019 18:35 HOOK UP: Osorio patient's son wants to make sure patient remains a FULL CODE. DCP- Discharge Planning Updated by [email or web address]: Ramona Salcedo on 07/11/19 8:[address] CM attempted to call [facility] [phone] each time facility would answer but they could not hear CM. CM tried on two different phones to assure it wasn't phone on this end. CM will continue to try to contact facility to find out bed status. DCPIA - Discharge Planning Initial Assessment Updated by [email or web address]: Ramona Salcedo on 07/10/19 6:28 pm * PCP KIMANI ROBERTSON * [facility] * Preadmission Environment Snf Facility * Facility Name [facility] * ADLs Partial Dependent * Partial ADLs (Assistance needed) Ambulation Bathing Dressing Eating Medication Management Toileting Transfers * List name and contact numbers for known caregivers / representatives who currently or will assist patient after discharge: OSORIO IQBAL - SON - [phone] * Verbal permission to speak to the caregivers and representatives has been obtained from the patient. N/A * Community resources currently utilized None * Additional services required to return to the preadmission environment? No * Can the patient safely return to the preadmission environment? Yes * Has this patient been hospitalized within the prior 30 days at any hospital? No Last DP export: 07/17/19 4:24 p Patient Name: CORNELL ROBERTSON Page 31555 at 1935 All edits/amendments must be made on the electronic document DICTATION DATE: 07/22/191933 STRETCHER DRIER OPERATOR: ELIA 07/22/191933 RPT#: [id number] DC DATE: STATUS: ADM IN [facility] [address] [place] [address] END OF REPORT
--- NOTE | 2019-07-22 23:15 | NUR ---
REASSESSMENT COMPLETED SEE FLOWSHEET
[2019-07-23] VITALS (24 sets, daily range): BP systolic 91–159; BP diastolic 46–96
--- NOTE | 2019-07-23 03:28 | NUR ---
REASSESSMENT COMPLETED SEE FLOWSHEET
--- NOTE | 2019-07-23 05:30 | NUR ---
CHG BATH AND COMPLETE LINEN CHANGE COMPLETED, SMALL BM NOTED - NEW MEPILEX APPLIED TO SACRUM. VSS CPOC
[2019-07-23 06:56] LABS: BASOPHILS 0.5 % (0-2); EOSINOPHILS 0.5 % (0-7); HEMOGLOBIN 8.9 g/dL (13.5-17.5); IMMATURE GRANULOCYTES 2.7 % (0-5); LYMPHOCYTES 29.7 % (15-50); MCHC 31.8 g/dL (31.0-37.0); MCV 94.3 fL (80.0-100.0); MEAN PLATELET VOLUME 9.2 fL (7.4-10.4); MONOCYTES 7.3 % (2-11); NEUTROPHILS 59.3 % (40-80); PLATELET COUNT 425 10x3/uL (130-400); RBC 2.97 10x6/uL (4.20-6.10); RDW 19.8 % (11.5-14.5); WBC 10.4 10x3/uL (4.8-10.8)
[2019-07-23 07:10] LABS: ALBUMIN 2.8 g/dL (3.4-5.0); BILIRUBIN - TOTAL 0.89 mg/dL (0.2-1.3); CALCIUM 8.3 mg/dL (8.5-10.1); CARBON DIOXIDE 25.5 mmol/L (21.0-32.0); POTASSIUM - SERUM 3.5 mmol/L (3.5-5.1); PROTEIN - SERUM 6.7 g/dL (6.4-8.2); VANCOMYCIN - RANDOM 20.4 ug/mL (10.0-20.0)
--- NOTE | 2019-07-23 07:15 | NUR ---
REPORT RECEIVED. ASSESSMENT COMPLETE PER FLOW SHEET. VSS. PT RESTING COMFORTABLY. ORAL CARE ADM. WILL CONTINUE TO MONITOR
--- NOTE | 2019-07-23 09:20 | NUR ---
ALL SEDATION TURNED OFF AT THIS TIME PER DR CASTRO
--- NOTE | 2019-07-23 11:15 | NUR ---
REASSESSMENT COMPLETE PER FLOW SHEET. VSS. NO NEW CHANGES PT RESTING COMFORTABLY WILL CONTINUE TO MONITOR
--- NOTE | 2019-07-23 13:20 | NUR ---
DR CASTRO AT BEDSIDE CPAP TRIAL ADM PT APNIC PLACED BACK ON A/C PER DR CASTRO
--- NOTE | 2019-07-23 14:07 | NUR ---
DR ISRAEL AT BEDSIDE GIVEN UDPATE
--- NOTE | 2019-07-23 15:15 | NUR ---
REASSESSMENT COMPLETE PER FLOW SHEET. VSS. NO NEW CHANGES WILL CONTINUE TO MONITOR
--- NOTE | 2019-07-23 19:00 | NUR ---
ASSESSMENT COMPLETED. OGT TO SUCTION, CHECKED PLACEMENT. REPOSITIONED AND ORAL CARE PROVIDED
--- NOTE | 2019-07-23 21:00 | NUR ---
REPOSITIONED AND ORAL CARE PROVIDED
--- NOTE | 2019-07-23 23:00 | NUR ---
RE-ASSESSMENT COMPLETED. CHG BATH GIVEN. COMPLETED. LINEN CHANGE. LARGE LOOSE BM
[2019-07-24] VITALS (25 sets, daily range): BP systolic 87–164; BP diastolic 64–103
--- NOTE | 2019-07-24 01:00 | NUR ---
REPOSITIONED AND ORAL CARE PROVIDED.
--- NOTE | 2019-07-24 03:00 | NUR ---
REPOSITIONED AND ORAL CARE PROVIDED. PATIENT TRYING TO MOVE ARMS BUT IS NOT FOLLOWING COMMANDS. LEFT SUBCLAVIAN DRESSING CHANGED AT APPROX 0000, BUT NOW IS SOAKED UNDER DRESSING. NO LEAK AROUND EDGES NOTED. STARTED RUNNING IVF THROUGH THE LEFT AC MIDLINE UNTIL IT CAN BE EVALUATED.
--- NOTE | 2019-07-24 04:59 | NUR ---
REPOSITIONED AND ORAL CARE PROVIDED.
[2019-07-24 05:29] LABS: BASOPHILS 0.5 % (0-2); EOSINOPHILS 0.1 % (0-7); HEMATOCRIT 27.5 % (42.0-54.0); HEMOGLOBIN 8.9 g/dL (13.5-17.5); MCH 30.1 pg (26.0-34.0); MCHC 32.4 g/dL (31.0-37.0); MCV 92.9 fL (80.0-100.0); MEAN PLATELET VOLUME 9.1 fL (7.4-10.4); MONOCYTES 7.5 % (2-11); NEUTROPHILS 77.9 % (40-80); PLATELET COUNT 453 10x3/uL (130-400); RBC 2.96 10x6/uL (4.20-6.10); RDW 19.5 % (11.5-14.5)
[2019-07-24 05:32] LABS: WBC 13.6 10x3/uL (4.8-10.8)
[2019-07-24 05:40] LABS: BILIRUBIN - TOTAL 1.07 mg/dL (0.2-1.3); CALCIUM 8.4 mg/dL (8.5-10.1); CREATININE - SERUM 4.3 mg/dL (0.6-1.3); MAGNESIUM - SERUM 2.1 mg/dL (1.8-2.4); PROTEIN - SERUM 6.7 g/dL (6.4-8.2); VANCOMYCIN - RANDOM 16.4 ug/mL (10.0-20.0)
[2019-07-24 05:41] LABS: ANION GAP 26.1 mmol/L (8-16); CARBON DIOXIDE 18.9 mmol/L (21.0-32.0); PHOSPHOROUS 6.3 mg/dL (2.5-4.9)
--- NOTE | 2019-07-24 07:00 | NUR ---
PT RESTING IN BED, VSS. SHIFT ASSESSMENT PERFORMED. BED ALARM ON, NO SIGNS OF DISTRESS NOTED, WRIST RESTRAINTS NOTED. WILL CONT TO FOLLOW POC
--- NOTE | 2019-07-24 09:00 | NUR ---
PT RESTING IN BED, VSS AND WNL. BED ALARM ON. PT REPOSITIONED. NO SIGNS OF DISTRESS NOTED, WILL CONT TO FOLLOW POC
--- NOTE | 2019-07-24 11:00 | NUR ---
CHG BATH GIVEN, BED ALARM ON, ETT SECURED. VSS AND WNL. CVL REMOVED ORDERED AND TIP SENT TO LAB. NO SIGNS OF DISTRESS NOTED. WILL CONT TO FOLLOW POC
--- NOTE | 2019-07-24 13:06 | MORECARE ---
CASE MANAGEMENT DISCHARGE SUMMARY PATIENT: CORNELL ROBERTSON UNIT: [id number] ADM DATE: 07/08/19 AGE: 69 : 52 SEX: M ROOM/BED: D.2313 AUTHOR: JODI,DOC PHYSICIAN: REFERRING PHYSICIAN: AUDRA HAAS MD DATE OF SERVICE: 07/24/19 Discharge Plan Patient Name: CORNELL ROBERTSON Facility: [facility]:[place] : 1950 Planned Disposition: Anticipated Discharge Date: Discharge Date: Expected LOS: Initial Reviewer: [email or web address] Initial Review Date: 07/08/2019 Generated: 07/24/19 2:06 pm Comments DCP- Discharge Planning Updated by [email or web address]: Ramona Salcedo on 07/22/19 6:[address] CM called and spoke with son Osorio Iqbal [phone]. CM asked Osorio if patient is unable to wean off ventilator if they want him to be trached. Osorio stated yes that they want everything to be done for his Dad. CM asked if he was POA he stated it is just my brother Gonzalo Robertson [phone] and my mother Yoly Robertson [phone]. (still legally ). CM explained that nursing staff may be calling him back for consent later. He stated that would be fine and if he didn't answer then to leave a message. CM will continue to follow and assist as needed with discharge planning / needs. DCP- Discharge Planning Updated by [email or web address]: Ramona Salcedo on 07/17/19 4:[address] CM called and spoke with [facility]. [phone]. She stated that the patient was in a Medicare SNF bed prior to code being sent out. He will be placed in a Medicaid pending bed upon return d/t him not being able to tolerate therapy. CM will continue to follow and assist as needed with discharge planning needs. DCP- Discharge Planning Updated by [id number]: Ramona Salcedo on 07/16/19 5:[address] Patient Name: CORNELL ROBERTSON Admission Status: ER Accout number: [id number] Admission Date: 07-08-2019 : 1950 Admission Diagnosis: Attending: AUDRA HAAS Current LOS: 2 Anticipated DC Date: Planned Disposition: Primary Insurance: MEDICARE A & B Discharge Planning Comments: CM called and spoke with patient's son Osorio Iqbal after explaining CM role and obtaining verbal consent. Patient is currently on vent. Patient coded while he was at [facility] and then went to [facility] then air lifted here. Osorio states that he has been in and out of hospitals, rehab facilities within the last year. Osorio plans on patient returning to [facility] upon discharge. CM will contact [place] to assure that he can come back to facility at discharge and find out what status (bed type) he was in. CM will continue to follow and assist as needed with discharge planning / needs. Plunger Scoop Operator: Ramona Salcedo Appended by Ramona Salcedo on 07/10/2019 18:35 MIXED LIVESTOCK FARM WORKER: Osorio patient's son wants to make sure patient remains a FULL CODE. DCP- Discharge Planning Updated by [id number]: Ramona Salcedo on 07/11/19 8:[address] CM attempted to call [facility] [phone] each time facility would answer but they could not hear CM. CM tried on two different phones to assure it wasn't phone on this end. CM will continue to try to contact facility to find out bed status. DCPIA - Discharge Planning Initial Assessment Updated by [email or web address]: Ramona Salcedo on 07/10/19 6:28 pm * PCP KIMANI ROBERTSON * [facility] * Preadmission Environment Long-Term Facility * Facility Name [facility] * ADLs Partial Dependent * Partial ADLs (Assistance needed) Ambulation Bathing Dressing Eating Medication Management Toileting Transfers * List name and contact numbers for known caregivers / representatives who currently or will assist patient after discharge: OSORIO IQBAL - SON - [phone] * Verbal permission to speak to the caregivers and representatives has been obtained from the patient. N/A * Community resources currently utilized None * Additional services required to return to the preadmission environment? No * Can the patient safely return to the preadmission environment? Yes * Has this patient been hospitalized within the prior 30 days at any hospital? No External Providers External Provider: [facility] Next Contact Date: Service Request Date: Service Type: Resolution: Reviewer: Comments: External Provider: [facility] [place] Next Contact Date: Service Request Date: Service Type: Resolution: Reviewer: Comments: Last DP export: 07/22/19 6:35 p Patient Name: CORNELL ROBERTSON Page 14874 at 1306 All edits/amendments must be made on the electronic document DICTATION DATE: 07/24/19 1306 SUPERVISOR ORDNANCE TRUCK INSTALLATION: ELIA 07/24/19 1306 RPT#: [id number] DC DATE: STATUS: ADM IN [facility] [address] [place] [address] END OF REPORT
--- NOTE | 2019-07-24 13:15 | MORECARE ---
CASE MANAGEMENT DISCHARGE SUMMARY PATIENT: CORNELL ROBERTSON UNIT: [id number] ADM DATE: 07/08/19 AGE: 69 : 52 SEX: M ROOM/BED: D.2313 AUTHOR: JODI,DOC PHYSICIAN: REFERRING PHYSICIAN: AUDRA HAAS MD DATE OF SERVICE: 07/24/19 Discharge Plan Patient Name: CORNELL ROBERTSON Facility: [facility]:[place] : 1950 Planned Disposition: Anticipated Discharge Date: Discharge Date: Expected LOS: Initial Reviewer: [email or web address] Initial Review Date: 07/08/2019 Generated: 07/24/19 2:15 pm Comments DCP- Discharge Planning Updated by [email or web address]: Ramona Salcedo on 07/22/19 6:[address] CM called and spoke with son Osorio Iqbal [phone]. CM asked Osorio if patient is unable to wean off ventilator if they want him to be trached. Osorio stated yes that they want everything to be done for his Dad. CM asked if he was POA he stated it is just my brother Gonzalo Robertson [phone] and my mother Yoly Robertson [phone]. (still legally ). CM explained that nursing staff may be calling him back for consent later. He stated that would be fine and if he didn't answer then to leave a message. CM will continue to follow and assist as needed with discharge planning / needs. DCP- Discharge Planning Updated by [email or web address]: Ramona Salcedo on 07/17/19 4:[address] CM called and spoke with [facility]. [phone]. She stated that the patient was in a Medicare SNF bed prior to code being sent out. He will be placed in a Medicaid pending bed upon return d/t him not being able to tolerate therapy. CM will continue to follow and assist as needed with discharge planning needs. DCP- Discharge Planning Updated by [email or web address]: Ramona Salcedo on 07/16/19 5:[address] Patient Name: CORNELL ROBERTSON Admission Status: ER Accout number: [id number] Admission Date: 07-08-2019 : 1950 Admission Diagnosis: Attending: AUDRA HAAS Current LOS: 2 Anticipated DC Date: Planned Disposition: Primary Insurance: MEDICARE A & B Discharge Planning Comments: CM called and spoke with patient's son Osorio Iqbal after explaining CM role and obtaining verbal consent. Patient is currently on vent. Patient coded while he was at [facility] and then went to [facility] then air lifted here. Osorio states that he has been in and out of hospitals, rehab facilities within the last year. Osorio plans on patient returning to [facility] upon discharge. CM will contact [facility] to assure that he can come back to facility at discharge and find out what status (bed type) he was in. CM will continue to follow and assist as needed with discharge planning / needs. Blast Furnace Blower: Ramona Salcedo Appended by Ramona Salcedo on 07/10/2019 18:35 HEAD CLEANING PORTER: Osorio patient's son wants to make sure patient remains a FULL CODE. DCP- Discharge Planning Updated by [id number]: Ramona Salcedo on 07/11/19 8:[address] CM attempted to call [facility] [phone] each time facility would answer but they could not hear CM. CM tried on two different phones to assure it wasn't phone on this end. CM will continue to try to contact facility to find out bed status. DCPIA - Discharge Planning Initial Assessment Updated by [email or web address]: Ramona Salcedo on 07/10/19 6:28 pm * PCP KIMANI ROBERTSON * [facility] * Preadmission Environment [facility]ci Facility * Facility Name [facility] * ADLs Partial Dependent * Partial ADLs (Assistance needed) Ambulation Bathing Dressing Eating Medication Management Toileting Transfers * List name and contact numbers for known caregivers / representatives who currently or will assist patient after discharge: OSORIO IQBAL - SON - [phone] * Verbal permission to speak to the caregivers and representatives has been obtained from the patient. N/A * Community resources currently utilized None * Additional services required to return to the preadmission environment? No * Can the patient safely return to the preadmission environment? Yes * Has this patient been hospitalized within the prior 30 days at any hospital? No External Providers External Provider: [facility] Next Contact Date: Service Request Date: Service Type: Resolution: Reviewer: Comments: External Provider: [facility] Next Contact Date: Service Request Date: Service Type: Resolution: Reviewer: Comments: Last DP export: 07/24/19 12:06 p Patient Name: CORNELL ROBERTSON Page 97901 at 1315 All edits/amendments must be made on the electronic document DICTATION DATE: 07/24/19 1315 UNDERWRITING MANAGER: ELIA 07/24/19 1315 RPT#: [id number] DC DATE: STATUS: ADM IN [facility] [address] [place] [address] END OF REPORT
--- NOTE | 2019-07-24 13:30 | NUR ---
NEW ORDER RECIEVED FROM TO START AMIODARONE GTT AND RECONSULT CARDIOLOGY DUE TO AFIB. NO SIGNS OF DISTRESS NOTED AT THIS TIME, PT RESTING IN BED, ETT SECURED. SIENA WITH CM WORKING ON FINDING LTAC PLACEMENT AT THIS TIME, WILL CONT TO FOLLOW POC
--- NOTE | 2019-07-24 13:46 | NUR ---
Nutrition follow-up: Pt remains NPO since high residual over the weekend. Trach soon Labs reviewed; decreased renal clearance per physician Intubated; sedation off RDN will order Osmolite 1.0 gregory to resume @ 15 ml/hr with gradual increase to goal rate of 75 ml/hr with 1000 ml H2O flush Q [address]N following.
--- NOTE | 2019-07-24 15:30 | NUR ---
OSMOLITE 1.0 STARTED ORDERED. NO SIGNS OF DISTRESS NOTED. WILL CONT TO FOLLOW POC
--- NOTE | 2019-07-24 16:00 | NUR ---
PT HR TRENDED DOWN QUICKLY TO 38 BPM. AMIODARONE WAS HELD ONCE HR WENT BELOW 60 BPM. HR TRENDED BACK UP TO OVER 100 BPM. AND CARDIOLOGY WERE NOTIFIED. PER CARDIOLOGY, HOLD ONE TIME DOSE OF DIGOXIN THAT WAS ORDERED BUT HAD NOT BEEN GIVEN YET. CRASH CART AT BEDSIDE, WILL CONT TO FOLLOW POC
--- NOTE | 2019-07-24 17:16 | NUR ---
PT BP DOWN TO 80S SYSTOLIC, MAP STAYING >60. CYNTHIA, CARDIOLOGY IMPROVEMENT ENGINEER HERE AND NOTIFIED OF CHANGE IN BP WITHOUT CARDIZEM GTT GOING YET. NEW ORDER RECIEVED TO GIVE ONE TIME DOSE OF DIGOXIN IV NOW AND MONITOR BP. IF BP COMES BACK UP TO 130S SYSTOLIC THEN MAY START CARDIZEM GTT FOR RATE CONTROL
--- NOTE | 2019-07-24 18:00 | NUR ---
PT RESTING IN BED, VSS AND WNL. ETT SECURED. NO SIGNS OF DISTRESS NOTED. WILL CONT TO FOLLOW POC
--- NOTE | 2019-07-24 20:06 | MORECARE ---
CASE MANAGEMENT DISCHARGE SUMMARY PATIENT: CORNELL ROBERTSON UNIT: [id number] ADM DATE: 07/08/19 AGE: 69 : 52 SEX: M ROOM/BED: D.2313 AUTHOR: JODI,DOC PHYSICIAN: REFERRING PHYSICIAN: AUDRA HAAS MD DATE OF SERVICE: 07/24/19 Discharge Plan Patient Name: CORNELL ROBERTSON Facility: [facility]:[place] : 1950 Planned Disposition: Anticipated Discharge Date: Discharge Date: Expected LOS: Initial Reviewer: [email or web address] Initial Review Date: 07/08/2019 Generated: 07/24/19 9:06 pm DCP- Discharge Planning Updated by [email or web address]: Ramona Salcedo on 07/24/19 7:[address] Late Entry 07/23/19 CM received notice for LTACH placement and JAILENE signed via phone for first available accepting facility. CM called and faxed records to [facility] in [place]. CM received a call back that patient has used up all his Medicare days including his lifetime. They will not be able to accept patient d/t lack of payer source. CM will continue to follow and assist as needed with discharge planning / needs. 07/24/19 CM contacted and faxed records to all LTACH facilities within the [facility]. They have all denied patient at this time and the facilities that do accept mariela cases are full. [facility] also contacted three Ltach facilities in [facility] to see if any accepted Mariela cases. They all denied patient. CM will continue to follow up with facilities to see if mariela bed is available. CM will continue to follow and assist as needed with discharge planning / needs DCP- Discharge Planning Updated by [email or web address]: Ramona Salcedo on 07/22/19 6:[address] CM called and spoke with son Osorio Iqbal [phone]. CM asked Osorio if patient is unable to wean off ventilator if they want him to be trached. Osorio stated yes that they want everything to be done for his Dad. CM asked if he was POA he stated it is just my brother Gonzalo Robertson [phone] and my mother Yoly Robertson [phone]. (still legally ). CM explained that nursing staff may be calling him back for consent later. He stated that would be fine and if he didn't answer then to leave a message. CM will continue to follow and assist as needed with discharge planning / needs. DCP- Discharge Planning Updated by [email or web address]: Ramona Salcedo on 07/17/19 4:[address] CM called and spoke with Ben @ [facility]. [phone]. She stated that the patient was in a Medicare SNF bed prior to code being sent out. He will be placed in a Medicaid pending bed upon return d/t him not being able to tolerate therapy. CM will continue to follow and assist as needed with discharge planning needs. DCP- Discharge Planning Updated by [email or web address]: Ramona Salcedo on 07/16/19 5:[address] Patient Name: CORNELL ROBERTSON Admission Status: ER Accout number: [id number] Admission Date: 07-08-2019 : 1950 Admission Diagnosis: Attending: AUDRA HAAS Current LOS: 2 Anticipated DC Date: Planned Disposition: Primary Insurance: MEDICARE A & B Discharge Planning Comments: CM called and spoke with patient's son Osorio Iqbal after explaining CM role and obtaining verbal consent. Patient is currently on vent. Patient coded while he was at [facility] and then went to [facility] then air lifted here. Osorio states that he has been in and out of hospitals, rehab facilities within the last year. Osorio plans on patient returning to [facility] upon discharge. CM will contact [facility] to assure that he can come back to facility at discharge and find out what status (bed type) he was in. CM will continue to follow and assist as needed with discharge planning / needs. Booking Prizer: Ramona Salcedo Appended by Ramona Salcedo on 07/10/2019 18:35 OUTREACH ANALYST: Osorio patient's son wants to make sure patient remains a FULL CODE. DCP- Discharge Planning Updated by [email or web address]: Ramona Salcedo on 07/11/19 8:[address] CM attempted to call [facility] [phone] each time facility would answer but they could not hear CM. CM tried on two different phones to assure it wasn't phone on this end. CM will continue to try to contact facility to find out bed status. DCPIA - Discharge Planning Initial Assessment Updated by [email or web address]: Ramona Salcedo on 07/10/19 6:28 pm * PCP KIMANI ROBERTSON * [facility] * Preadmission Environment [facility] Facility * Facility Name [facility] * ADLs Partial Dependent * Partial ADLs (Assistance needed) Ambulation Bathing Dressing Eating Medication Management Toileting Transfers * List name and contact numbers for known caregivers / representatives who currently or will assist patient after discharge: OSORIO PERRY - [phone] * Verbal permission to speak to the caregivers and representatives has been obtained from the patient. N/A * Community resources currently utilized None * Additional services required to return to the preadmission environment? No * Can the patient safely return to the preadmission environment? Yes * Has this patient been hospitalized within the prior 30 days at any hospital? No Last DP export: 07/24/19 12:15 p Patient Name: CORNELL ROBERTSON Page 38904 at 2006 All edits/amendments must be made on the electronic document DICTATION DATE: 07/24/192005 VENEER LAYER: ELIA 07/24/19 2006 RPT#: [id number] DC DATE: STATUS: ADM IN [facility] [address] [place] [address] END OF REPORT
[2019-07-25] VITALS (23 sets, daily range): BP systolic 139–190; BP diastolic 78–126
[2019-07-25 06:10] LABS: ALBUMIN 3.2 g/dL (3.4-5.0); ANION GAP 25.7 mmol/L (8-16); BILIRUBIN - TOTAL 1.38 mg/dL (0.2-1.3); CALCIUM 8.3 mg/dL (8.5-10.1); CARBON DIOXIDE 19.2 mmol/L (21.0-32.0); CREATININE - SERUM 4.8 mg/dL (0.6-1.3); POTASSIUM - SERUM 3.9 mmol/L (3.5-5.1); PROTEIN - SERUM 6.9 g/dL (6.4-8.2); VANCOMYCIN - RANDOM 23.2 ug/mL (10.0-20.0)
[2019-07-25 06:28] LABS: HEMATOCRIT 28.4 % (42.0-54.0); HEMOGLOBIN 9.3 g/dL (13.5-17.5); MCH 30.4 pg (26.0-34.0); MCHC 32.7 g/dL (31.0-37.0); MCV 92.8 fL (80.0-100.0); MEAN PLATELET VOLUME 9.4 fL (7.4-10.4); PLATELET COUNT 455 10x3/uL (130-400); RBC 3.06 10x6/uL (4.20-6.10); RDW 20.4 % (11.5-14.5); WBC 28.3 10x3/uL (4.8-10.8)
[2019-07-25 07:21] LABS: LYMPHOCYTES 13 % (15-50); MONOCYTES 1 % (2-11); NEUTROPHILS 84 % (40-80)
[2019-07-25 07:22] LABS: PLATELET ESTIMATE INCREASED
--- NOTE | 2019-07-25 07:47 | NUR ---
recived patient with no og tube. no acute distress. l upper arm midline. cardizam running at 5 with a systolic bp of 180/108 and hr of 102. see assessment. see adl's. vent. voss. incontinent. npo since midnight. consents signed. no family at bedside during this time. bed low and locked. side rails x2. chg bath done at shift change
--- NOTE | 2019-07-25 08:30 | NUR ---
dr solorzano on phone speaking with family regarding prognosis
--- NOTE | 2019-07-25 08:57 | NUR ---
Nutrition follow-up: Pt pulled out OGT last evening. NPO Labs reviewed; LFT's trending up; BUN/Cr also trending up UOP decreased Wt: 266# Waiting for trach/PEG placement. RDN following.
--- NOTE | 2019-07-25 08:58 | NUR ---
DID NOT TREAT 160 BLOOD SUGAR BECAUSE PATIENT IS NPO AND WILL BE GETTING TRACH TODAY
--- NOTE | 2019-07-25 09:00 | NUR ---
trach placement in progress with bronch per dr solorzano
--- NOTE | 2019-07-25 10:58 | NUR ---
trach in place per dr solorzano
--- NOTE | 2019-07-25 11:11 | NUR ---
FRESH TRACH PROTOCOL. PATIENT WILL REMAIN ON BACK. VSS. AMBER WELLS. WILL CONTINUE TO MONTREINALDO
--- NOTE | 2019-07-25 13:28 | NUR ---
VENT SETTING CHANGE BACK TO 40%.
--- NOTE | 2019-07-25 14:37 | MORECARE ---
CASE MANAGEMENT DISCHARGE SUMMARY PATIENT: CORNELL ROBERTSON UNIT: [id number] ADM DATE: 07/08/19 AGE: 69 : 52 SEX: M ROOM/BED: D.2313 AUTHOR: JODI,DOC PHYSICIAN: REFERRING PHYSICIAN: AUDRA HAAS MD DATE OF SERVICE: 07/25/19 Discharge Plan Patient Name: CORNELL ROBERTSON Facility: [facility]:[place] : 1950 Planned Disposition: Anticipated Discharge Date: Discharge Date: Expected LOS: Initial Reviewer: [email or web address] Initial Review Date: 07/08/2019 Generated: 07/25/19 3:37 pm Comments DCP- Discharge Planning Updated by [email or web address]: Ramona Salcedo on 07/25/19 1:[address] CM called and spoke with patient's Yoly Robertson [phone]. which will be patient's POA since they are still legally . CM called and explained that the patient is out of all his Medicare days therefore he will need to have placement in a custodial upon discharge and the only facilities that take vent patients are out of state. CM also explained that in order to be able to apply for Medicaid we will need his financial information to see if he qualifies for Medicaid. Yoly stated that she would try to go to the bank and get statements and fax them into . CM gave Yoly her phone number and fax number. CM will continue to follow and assist as needed with discharge planning / needs. DCP- Discharge Planning Updated by [email or web address]: Ramona Salcedo on 07/24/19 7:[address] Late Entry 07/23/19 CM received notice for LTACH placement and JAILENE signed via phone for first available accepting facility. CM called and faxed records to [facility] [place]. CM received a call back that patient has used up all his Medicare days including his lifetime. They will not be able to accept patient d/t lack of payer source. CM will continue to follow and assist as needed with discharge planning / needs. 07/24/19 CM contacted and faxed records to all LTACH facilities within the [facility]. They have all denied patient at this time and the facilities that do accept mariela cases are full. CM also contacted [facility] to see if any accepted Mariela cases. They all denied patient. CM will continue to follow up with facilities to see if mariela bed is available. CM will continue to follow and assist as needed with discharge planning / needs DCP- Discharge Planning Updated by [email or web address]: Ramona Matias on 07/22/19 6:[address] CM called and spoke with son Osorio Iqbal [phone]. CM asked Osorio if patient is unable to wean off ventilator if they want him to be trached. Osorio stated yes that they want everything to be done for his Dad. CM asked if he was POA he stated it is just my brother Gonzalo Robertson [phone] and my mother Yoly Robertson [phone]. (still legally ). CM explained that nursing staff may be calling him back for consent later. He stated that would be fine and if he didn't answer then to leave a message. CM will continue to follow and assist as needed with discharge planning / needs. DCP- Discharge Planning Updated by [email or web address]: Ramona Salcedo on 07/17/19 4:[address] [facility]. [phone]. She stated that the patient was in a Medicare SNF bed prior to code being sent out. He will be placed in a Medicaid pending bed upon return d/t him not being able to tolerate therapy. CM will continue to follow and assist as needed with discharge planning needs. DCP- Discharge Planning Updated by [id number]: Ramona Salcedo on 07/16/19 5:[address] Patient Name: CORNELL ROBERTSON Admission Status: ER Accout number: [id number] Admission Date: 07-08-2019 : 1950 Admission Diagnosis: Attending: AUDRA HAAS Current LOS: 2 Anticipated DC Date: Planned Disposition: Primary Insurance: MEDICARE A & B Discharge Planning Comments: CM called and spoke with patient's son Osorio Iqbal after explaining CM role and obtaining verbal consent. Patient is currently on vent. Patient coded while he was at [facility] and then went to [facility] then air lifted here. Osorio states that he has been in and out of hospitals, rehab facilities within the last year. Osorio plans on patient returning to [facility] upon discharge. CM will contact [facility] to assure that he can come back to facility at discharge and find out what status (bed type) he was in. CM will continue to follow and assist as needed with discharge planning / needs. Laundrette Owner: Ramona Salcedo Appended by Ramona Salcedo on 07/10/2019 18:35 WHITE MIXING OPERATOR: Osorio patient's son wants to make sure patient remains a FULL CODE. DCP- Discharge Planning Updated by [email or web address]: Ramona Salcedo on 07/11/19 8:[address] CM attempted to call [facility] [phone] each time facility would answer but they could not hear CM. CM tried on two different phones to assure it wasn't phone on this end. CM will continue to try to contact facility to find out bed status. DCPIA - Discharge Planning Initial Assessment Updated by [email or web address]: Ramona Salcedo on 07/10/19 6:28 pm * PCP KIMANI ROBERTSON * [facility] * Preadmission Environment [facility] Facility * Facility Name [facility] * ADLs Partial Dependent * Partial ADLs (Assistance needed) Ambulation Bathing Dressing Eating Medication Management Toileting Transfers * List name and contact numbers for known caregivers / representatives who currently or will assist patient after discharge: OSORIO IQBAL - SON - [phone] * Verbal permission to speak to the caregivers and representatives has been obtained from the patient. N/A * Community resources currently utilized None * Additional services required to return to the preadmission environment? No * Can the patient safely return to the preadmission environment? Yes * Has this patient been hospitalized within the prior 30 days at any hospital? No Last DP export: 07/24/19 7:06 p Patient Name: CORNELL ROBERTSON Page 54025 at 1437 All edits/amendments must be made on the electronic document DICTATION DATE: 07/25/191436 E MARKETING SPECIALIST: ELIA 07/25/19 1437 RPT#: [id number] DC DATE: STATUS: ADM IN [facility] [address] [place] [address] END OF REPORT
--- NOTE | 2019-07-25 14:39 | NUR ---
PATIENT UNABLE TO BE MOVED FOR 72 HOURS.
--- NOTE | 2019-07-25 15:12 | NUR ---
spoke with dr stewart. stated he will do peg tube tomorrow.
--- NOTE | 2019-07-25 17:00 | NUR ---
ARMANI DAVID. YANIG BATH AND BM AT THIS TIME
[2019-07-26] VITALS (24 sets, daily range): BP systolic 144–162; BP diastolic 45–105
[2019-07-26 08:08] LABS: ANION GAP 29.7 mmol/L (8-16); CALCIUM 8.4 mg/dL (8.5-10.1); CARBON DIOXIDE 15.2 mmol/L (21.0-32.0); CREATININE - SERUM 4.7 mg/dL (0.6-1.3); POTASSIUM - SERUM 3.9 mmol/L (3.5-5.1)
[2019-07-26 09:19] LABS: HEMATOCRIT 31.5 % (42.0-54.0); HEMOGLOBIN 10.2 g/dL (13.5-17.5); MCH 30.2 pg (26.0-34.0); MCHC 32.4 g/dL (31.0-37.0); MCV 93.2 fL (80.0-100.0); MEAN PLATELET VOLUME 9.3 fL (7.4-10.4); PLATELET COUNT 519 10x3/uL (130-400); RBC 3.38 10x6/uL (4.20-6.10); RDW 20.9 % (11.5-14.5); WBC 28.8 10x3/uL (4.8-10.8)
--- NOTE | 2019-07-26 09:23 | NUR ---
patient straightened up. all lines untangled. labeled and capped. patient hr decreased from 120 to 62. decreased diltiazam to 10 ml/hr
--- NOTE | 2019-07-26 10:32 | NUR ---
SISTER RON CALLED FOR UPDATE, SECURITY CODE GIVEN, STATUS UPDATED
--- NOTE | 2019-07-26 12:00 | NUR ---
patient desatted on 50% fio2 to 63%spo2 increased to 100% vent
--- NOTE | 2019-07-26 12:39 | NUR ---
Nutrition follow-up: NPO; possible PEG tube placement today Labs reviewed; BUN/Cr, LFT's elevated Wt: 266# When PEG placed and ready for use, recommend starting Suplena @ 20 ml/hr with gradual increase to goal rate of 60 ml/hr with 100 ml H2O flush Q [address] following.
[2019-07-26 12:58] LABS: ANISOCYTOSIS OCC; LYMPHOCYTES 12 % (15-50); MONOCYTES 5 % (2-11); NEUTROPHILS 80 % (40-80); PLATELET ESTIMATE INCREASED; POLYCHROMASIA OCC
--- NOTE | 2019-07-26 13:30 | NUR ---
egd at bedside. prepping instruments
--- NOTE | 2019-07-26 14:00 | NUR ---
peg tube ended
--- NOTE | 2019-07-26 14:57 | NUR ---
1330-PROCEDURE AT BEDSIDE IN ICU-AIRBORNE ISOLATION PRECAUTIONS IN PLACE.
--- NOTE | 2019-07-26 17:09 | NUR ---
patient dessated. increased to 90%
--- NOTE | 2019-07-26 17:11 | NUR ---
patient manually bagged to increase spo2
--- NOTE | 2019-07-26 19:15 | NUR ---
SHIFT ASSESSMENT COMPLETED SEE FLOWSHEET PT UNRESPONSIVE, EYES OPEN BUT NOT BLINKING, PUPILS PERRLA SIZE 3 - CORNEAL REFLEXES INTACT - NO MOTOR RESPONSE TO DEEP STIMULI - VSS CPOC
--- NOTE | 2019-07-26 23:15 | NUR ---
REASSESSMENT COMPLETED SEE FLOWSHEET
[2019-07-27] VITALS (24 sets, daily range): BP systolic 139–168; BP diastolic 79–104
--- NOTE | 2019-07-27 03:08 | NUR ---
REASSESSMENT COMPLETED SEE FLOWSHEET
[2019-07-27 04:37] LABS: BASOPHILS 0.3 % (0-2); EOSINOPHILS 0 % (0-7); HEMOGLOBIN 9.8 g/dL (13.5-17.5); IMMATURE GRANULOCYTES 0.8 % (0-5); LYMPHOCYTES 10.4 % (15-50); MCHC 32.7 g/dL (31.0-37.0); MCV 91.7 fL (80.0-100.0); MEAN PLATELET VOLUME 9.1 fL (7.4-10.4); NEUTROPHILS 84.5 % (40-80); PLATELET COUNT 442 10x3/uL (130-400); RBC 3.27 10x6/uL (4.20-6.10); RDW 20.7 % (11.5-14.5); WBC 19.4 10x3/uL (4.8-10.8)
[2019-07-27 04:50] LABS: CALCIUM 8.1 mg/dL (8.5-10.1); CREATININE - SERUM 4.8 mg/dL (0.6-1.3); VANCOMYCIN - RANDOM 20.1 ug/mL (10.0-20.0)
[2019-07-27 04:56] LABS: ANION GAP 23.1 mmol/L (8-16); CARBON DIOXIDE 21.2 mmol/L (21.0-32.0); POTASSIUM - SERUM 3.3 mmol/L (3.5-5.1)
--- NOTE | 2019-07-27 05:54 | NUR ---
PT RESTING COMFORTABLY, VSS CPOC
--- NOTE | 2019-07-27 07:00 | NUR ---
BEDSIDE REPORT RECEIVED. SHIFT ASSESSMENT COMPLETED PER FLOWSHEET, SEE FLOWSHEET FOR INFORMATION. PT RESTING IN BED WITH EYES OPEN, RESPONSIVE ONLY TO PAINFUL STIMULI. WILL CALL FAMILY TO TALK FURTHER ABOUT CONDITION AND CARE. NO ACUTE NEEDS OR DISTRESS NOTED AT THIS TIME. VSS. WILL CONT TO MONITOR.
--- NOTE | 2019-07-27 07:00 | NUR ---
BEDSDIE REPORT RECEIVED. SHIFT ASSESSMENT COMPLETED PER FLOWSHEET, SEE FLOWSHEET FOR INFORMATION. NO ACUTE NEEDS OR DISTRESS NOTED AT THIS TIME. PLAN ON CALLING FAMILY TODAY TO FURTHER DISCUSS PT CARE. WILL CONT TO MONITOR.
--- NOTE | 2019-07-27 08:58 | NUR ---
DECREASED FIO2 TO 60% PER VERBAL ORDER DR CASTRO
--- NOTE | 2019-07-27 09:00 | NUR ---
RESTING IN BED WITH EYES CLOSED. WILL CONT TO MONITOR.
--- NOTE | 2019-07-27 11:00 | NUR ---
REASSESSED PER FLOWSHEET, SEE FLOWSHEET FOR INFORMATION. WILL CONT TO MONTITOR.
--- NOTE | 2019-07-27 13:00 | NUR ---
SPOKE WITH OSORIO SAUCEDA (PT SON) ABOUT PT CONDITION AND CARE. PT THEN ASKED TO TALK TO A DOCTOR. ANSWERED PHONE AND SPOKE WITH FAMILY, WILL CONT TO MONITOR.
--- NOTE | 2019-07-27 13:20 | NUR ---
PT DESAT TO 70%, INCREASED O2 TO 100% AND WENT TO 72%, BAGGED PT FOR 15 MINUTES AND O2 SAT RAISED TO 92%. WILL CONT TO MONITOR.
--- NOTE | 2019-07-27 14:19 | NUR ---
PT TRANSFERED TO ROOM ROOM 2108 VIA BED. WILL CONT TO MONITOR.
--- NOTE | 2019-07-27 15:00 | NUR ---
G TUBE FEEDING STARTED AT 25ML/HR WITH A FLUSH OFF 100ML EVERY 4/HRS. CHG BEDBATH GIVEN, COMPLETE LINEN CHANGE COMPLETED. REASSESSMENT COMPLETED PER FLOWSHEET, SEE FLOWSHEET FOR INFORMATION. WILL CONT TO MONITOR.
--- NOTE | 2019-07-27 17:00 | NUR ---
PT RESTING IN BED WITH EYES CLOSED. NO ACUTE NEEDS OR DISTRESS NOTED AT THIS TIME. WILL CONT TO MONITOR.
--- NOTE | 2019-07-27 19:20 | NUR ---
SHIFT ASSESSMENT COMPLETED SEE FLOWSHEET
--- NOTE | 2019-07-27 21:15 | NUR ---
PT ON VENT VIA TRACH, VSS CPOC
--- NOTE | 2019-07-27 23:10 | NUR ---
REASSESSMENT COMPLETED SEE FLOWSHEET
[2019-07-28] VITALS (14 sets, daily range): BP systolic 90–154; BP diastolic 53–102
[2019-07-28 01:32] LABS: BASOPHILS 0.2 % (0-2); EOSINOPHILS 0 % (0-7); HEMATOCRIT 30.9 % (42.0-54.0); HEMOGLOBIN 10.2 g/dL (13.5-17.5); IMMATURE GRANULOCYTES 0.8 % (0-5); LYMPHOCYTES 10.2 % (15-50); MCH 30.2 pg (26.0-34.0); MCV 91.4 fL (80.0-100.0); MONOCYTES 5.8 % (2-11); PLATELET COUNT 369 10x3/uL (130-400); RBC 3.38 10x6/uL (4.20-6.10); RDW 21.1 % (11.5-14.5); WBC 18.2 10x3/uL (4.8-10.8)
[2019-07-28 01:52] LABS: ANION GAP 18.7 mmol/L (8-16); CALCIUM 8.2 mg/dL (8.5-10.1); CARBON DIOXIDE 24.1 mmol/L (21.0-32.0); CREATININE - SERUM 4.8 mg/dL (0.6-1.3); POTASSIUM - SERUM 3.8 mmol/L (3.5-5.1); VANCOMYCIN - RANDOM 19.3 ug/mL (10.0-20.0)
--- NOTE | 2019-07-28 03:15 | NUR ---
REASSESSMENT COMPLETED SEE FLOWSHEET
--- NOTE | 2019-07-28 04:37 | NUR ---
RT AT BEDSIDE, FIO2 TITRATED TO 70%
--- NOTE | 2019-07-28 04:49 | NUR ---
NO CHNAGES CPOC
--- NOTE | 2019-07-28 07:00 | NUR ---
BEDSIDE REPORT RECEIVED. SHIFT ASSESSMENT COMPLETED PER FLOWSHEET, SEE FLOWSHEET FOR INFORMATION. NO ACUTE NEEDS OR DISTRESS NOTED AT THIS TIME. WILL CONT TO MONITOR.
--- NOTE | 2019-07-28 09:00 | NUR ---
PT RESTING IN BED WITH EYES CLOSED. WILL CONT TO MONITOR.
--- NOTE | 2019-07-28 12:00 | NUR ---
PT FAMILY AT BEDSIDE. SPEAKING WITH FAMILY, FAMILY AGREED ON TERMINAL EXTUBATION. WILL CONT TO MONITOR.
--- NOTE | 2019-07-28 13:05 | NUR ---
RT TERMINALLY EXTUBATED PT WITH FAMILY AT BEDSIDE PER THEIR REQUEST. WILL CONT TO MONITOR.
--- NOTE | 2019-07-28 13:54 | NUR ---
PT . FAMILY AT BEDSIDE. WILL CONT TO MONITOR.
--- NOTE | 2019-07-28 14:10 | NUR ---
[facility] CALLED. FAMILY STILL AT BEDSIDE.
--- NOTE | 2019-07-29 09:38 | MORECARE ---
CASE MANAGEMENT DISCHARGE SUMMARY PATIENT: CORNELL ROBERTSON UNIT: [id number] ADM DATE: 07/08/19 AGE: 69 : 52 SEX: M ROOM/BED: D.2313 AUTHOR: JODI,DOC PHYSICIAN: REFERRING PHYSICIAN: AUDRA HAAS MD DATE OF SERVICE: 07/29/19 Discharge Plan Patient Name: CORNELL ROBERTSON Facility: [facility]:[place] : 1950 Planned Disposition: Anticipated Discharge Date: Discharge Date: 07/28/2019 Expected LOS: Initial Reviewer: [email or web address] Initial Review Date: 07/08/2019 Generated: 07/29/19 10:37 am DCP- Discharge Planning Updated by [email or web address]: Ramona Salcedo on 07/25/19 1:[address] CM called and spoke with patient's Yoly Robertson [phone]. which will be patient's POA since they are still legally . CM called and explained that the patient is out of all his Medicare days therefore he will need to have placement in a shelter upon discharge and the only facilities that take vent patients are out of state. CM also explained that in order to be able to apply for Medicaid we will need his financial information to see if he qualifies for Medicaid. Yoly stated that she would try to go to the bank and get statements and fax them into CM. CM gave Yoly her phone number and fax number. CM will continue to follow and assist as needed with discharge planning / needs. DCP- Discharge Planning Updated by [id number]: Ramona Salcedo on 07/24/19 7:[address] Late Entry 07/23/19 CM received notice for LTACH placement and JAILENE signed via phone for first available accepting facility. CM called and faxed records to [facility] [place]. CM received a call back that patient has used up all his Medicare days including his lifetime. They will not be able to accept patient d/t lack of payer source. CM will continue to follow and assist as needed with discharge planning / needs. 07/24/19 CM contacted and faxed records to all LTACH facilities within the state of [place]. They have all denied patient at this time and the facilities that do accept mariela cases are full. CM also contacted three [facility] facilities in [facility] to see if any accepted Mariela cases. They all denied patient. CM will continue to follow up with facilities to see if mariela bed is available. CM will continue to follow and assist as needed with discharge planning / needs DCP- Discharge Planning Updated by [email or web address]: Ramona Salcedo on 07/22/19 6:[address] CM called and spoke with son Osorio Iqbal [phone]. CM asked Osorio if patient is unable to wean off ventilator if they want him to be trached. Osorio stated yes that they want everything to be done for his Dad. CM asked if he was POA he stated it is just my brother Gonzalo Robertson [phone] and my mother Yoly Robertson [phone]. (still legally ). CM explained that nursing staff may be calling him back for consent later. He stated that would be fine and if he didn't answer then to leave a message. CM will continue to follow and assist as needed with discharge planning / needs. DCP- Discharge Planning Updated by [email or web address]: Ramona Salcedo on 07/17/19 4:[address] CM called and spoke with Ben @ [facility]. [phone]. She stated that the patient was in a Medicare SNF bed prior to code being sent out. He will be placed in a Medicaid pending bed upon return d/t him not being able to tolerate therapy. CM will continue to follow and assist as needed with discharge planning needs. DCP- Discharge Planning Updated by [email or web address]: Ramona Salcedo on 07/16/19 5:[address] Patient Name: CORNELL ROBERTSON Admission Status: ER Accout number: [id number] Admission Date: 07-08-2019 : 1950 Admission Diagnosis: Attending: AUDRA HAAS Current LOS: 2 Anticipated DC Date: Planned Disposition: Primary Insurance: MEDICARE A & B Discharge Planning Comments: CM called and spoke with patient's son Osorio Iqbal after explaining CM role and obtaining verbal consent. Patient is currently on vent. Patient coded while he was at [facility] and then went to [facility] then air lifted here. Osorio states that he has been in and out of hospitals, rehab facilities within the last year. Osorio plans on patient returning to [facility] upon discharge. CM will contact [facility] to assure that he can come back to facility at discharge and find out what status (bed type) he was in. CM will continue to follow and assist as needed with discharge planning / needs. Gauge Maker Apprentice: Ramona Salcedo Appended by Ramona Salcedo on 07/10/2019 18:35 CONSULAR OFFICER: Osorio patient's son wants to make sure patient remains a FULL CODE. DCP- Discharge Planning Updated by [id number]: Ramona Salcedo on 07/11/19 8:[address] CM attempted to call [facility] [phone] each time facility would answer but they could not hear CM. CM tried on two different phones to assure it wasn't phone on this end. CM will continue to try to contact facility to find out bed status. DCPIA - Discharge Planning Initial Assessment Updated by [email or web address]: Ramona Salcedo on 07/10/19 6:28 pm * PCP KIMANI ROBERTSON * [facility] * Preadmission Environment [facility] * Facility Name [facility] * ADLs Partial Dependent * Partial ADLs (Assistance needed) Ambulation Bathing Dressing Eating Medication Management Toileting Transfers * List name and contact numbers for known caregivers / representatives who currently or will assist patient after discharge: OSORIO IQBAL - SON - [phone] * Verbal permission to speak to the caregivers and representatives has been obtained from the patient. N/A * Community resources currently utilized None * Additional services required to return to the preadmission environment? No * Can the patient safely return to the preadmission environment? Yes * Has this patient been hospitalized within the prior 30 days at any hospital? No Last DP export: 07/25/19 1:37 p Patient Name: CORNELL ROBERTSON Page [id number] at 0938 All edits/amendments must be made on the electronic document DICTATION DATE: 07/29/19936 TRUCK SERVICE MANAGER: ELIA 07/29/19936 RPT#: [id number] DC DATE:07/28/19 STATUS: DIS IN [facility] [address] [place] [address] END OF REPORT
== END 2019-07-28 17:04 | DRG 4 ==
LOC: D.ER 16:48 → D.ICU 17:08 → D.CVICU 17:08 → D.ICU 07-11 10:57
PROVIDERS: Family Medicine; Internal Medicine Nephrology; Internal Medicine Pulmonary Disease; ADMIT Internal Medicine Nephrology; ATTEND Internal Medicine Nephrology
PROC: 5A1955Z Respiratory Ventilation, Greater than 96 Consecutive Hours (ICD-10-PCS; principal; 2019-07-08)
PROC: 05HY33Z Insertion of Infusion Device into Upper Vein, Percutaneous Approach (ICD-10-PCS; 2019-07-10)
PROC: 0B9F8ZX Drainage of Right Lower Lung Lobe, Via Natural or Artificial Opening Endoscopic, Diagnostic (ICD-10-PCS; 2019-07-12)
PROC: 05H633Z Insertion of Infusion Device into Left Subclavian Vein, Percutaneous Approach (ICD-10-PCS; 2019-07-14)
PROC: 0B113F4 Bypass Trachea to Cutaneous with Tracheostomy Device, Percutaneous Approach (ICD-10-PCS; 2019-07-25)
DX: J96.21 Acute and chronic respiratory failure with hypoxia (principal); G93.41 Metabolic encephalopathy; J69.0 Pneumonitis due to inhalation of food and vomit; I50.21 Acute systolic (congestive) heart failure; J15.6 Pneumonia due to other Gram-negative bacteria; N17.0 Acute kidney failure with tubular necrosis; K72.00 Acute and subacute hepatic failure without coma; I13.0 Hypertensive heart and chronic kidney disease with heart failure and stage 1 through stage 4 chronic kidney disease, or unspecified chronic kidney disease; E87.1 Hypo-osmolality and hyponatremia; G93.1 Anoxic brain damage, not elsewhere classified; I46.9 Cardiac arrest, cause unspecified; N18.3 Chronic kidney disease, stage 3 (moderate); D64.9 Anemia, unspecified; E11.22 Type 2 diabetes mellitus with diabetic chronic kidney disease; F03.90 Unspecified dementia, unspecified severity, without behavioral disturbance, psychotic disturbance, mood disturbance, and anxiety; G62.9 Polyneuropathy, unspecified; I73.9 Peripheral vascular disease, unspecified; E78.5 Hyperlipidemia, unspecified; J44.9 Chronic obstructive pulmonary disease, unspecified; I25.10 Atherosclerotic heart disease of native coronary artery without angina pectoris; R00.0 Tachycardia, unspecified